=== PATIENT | female | born 1995 | race Caucasian/White ===

== ENCOUNTER 2018-03-09 13:09 | Observation (INO) | payer MEDICAID, OTHER ==
[~2018-03-09] VITALS: Ht 154.9 cm; Wt 86.4 kg
[~2018-03-09 13:09] MED LIST: AMOX500C2 PO; CLAR-19 PO; HYDR-3454 PO; HYDR-3729 PO; HYOS0.1283 SL; OMEP20CA12 PO; ONDA-42 SL; ONDA4TAB8 PO; PANT40TA2 PO; PRCD5U; PRENATAL VITAMINS; TRAM-42 PO; TRM50T PO
--- OUTSIDE RECORDS SUMMARY | 2018-03-09 13:16 | XMS REPORT ---
Author Author THELMA BUTT [facility] Address [address] [place] [address] Care Team Providers Care Front Maker Lockstitch Name Role Phone THELMA BUTT Unavailable PROBLEMS Type Condition ICD9-CM Code LPH84-FP Code Onset Dates Condition Status SNOMED Code Problem Seasonal allergic rhinitis, unspecified allergic rhinitis trigger J30.2 Active 813969473 ALLERGIES No Known Allergies ENCOUNTERS Encounter Location Date Diagnosis [address] [id number] Jan, [address] [id number] Jan, Persistent cough R05 [address] [id number] Jan, [address] [id number] Jan, Pneumonitis J18.[address] [id number] Jan, Pneumonitis J18.9 [place] [id number] [place] [address] [id number] Nov, Encounter for Depo-Provera contraception Z30.42 and Acute cystitis with hematuria N30.[address] [id number] August, Encounter for Depo-Provera contraception Z30.42 [place] [id number] [place] [address] [id number] May, Encounter for Depo-Provera contraception Z30.42 [place] [id number] [place] [address] [id number] Mar, Dysuria R30.0 ; Trichomonas infection A59.9 ; Vaginal discharge N89.8 ; Other microscopic hematuria R31.29 ; Urinary tract infection, site not specified N39.0 and Hematuria, unspecified R31.[address] [place] [address] [id number] 08 Mar, 2017 Well woman exam (no gynecological exam) Z00.00 ; control counseling Z30.09 ; Encounter for initial prescription of injectable contraceptive Z30.013 and Encounter for Depo-Provera contraception Z30.[address] [place] [address] [id number] 16 Sep, 2016 [place] [id number] [place] [address] [id number] Mar, Common cold J00 ; Sore throat J02.9 ; Cough R05 and Post-nasal drainage R09.82 [place] [id number] [place] [address] [id number] Mar, Acute pharyngitis due to other specified organisms J02.8 and Sinus congestion R09.81 [address] [id number] Mar, Seasonal allergic rhinitis, unspecified allergic rhinitis trigger J30.2 ; Post-nasal drip R09.82 and Sore throat J02.9 [facility] [id number] [place] [address]20- 4276 Jul, [facility] [id number] [place] [address] 657060- 7686 Jul, [facility] [id number] [place] [address] 02784- 6606 August, [facility] [address] [place] [address] [id number] Jul, [facility] [address] [address]- [address] Jul, [place] [id number] [place] [address] [id number] Jul, [facility] [id number] [place] [address] 45610- 1829 Jul, [address] [id number] [phone] Jun, [facility] [address] [address] Jun, [facility] [address] [address] Dec, [facility] [address] [id number] [place] [id number] Dec, [facility] [address] [id number] [place] [phone] Jun, [facility] [address] [id number] [place] [phone] Jun, [facility] [address] [id number] [place] [phone] May, [facility] [address] [id number] [place] [id number] Mar, [facility] [address] [address] 116[address] Mar, [facility] [address] [address] Dec, [facility] [id number] [id number] Jul, [facility] [address] [id number] [phone] Jul, [facility] [address] [place] [address] 90213- 3205 Mar, [facility] [address] [address] 5[address] Mar, [facility] [id number] [place] [address] 94193- 4863 Mar, [facility] [address] [id number] [phone] Mar, IMMUNIZATIONS No Known Immunizations SOCIAL HISTORY Never Assessed REASON FOR VISIT shortness of breath f/u, was seen in ER Monday and Monday [facility] RN PLAN OF CARE Activity Details Follow Up 1 Week Reason:cough VITAL SIGNS Height 63 in 2018-02-20 Weight 193.4 lbs 2018-02-20 Temperature 98.7 degrees Fahrenheit 2018-02-20 Heart Rate 88 bpm 2018-02-20 Respiratory Rate 18 2018-02-20 Oximetry 97 % 2018-02-20 BMI 34.26 kg/m2 2018-02-20 Blood pressure systolic 130 mmHg 2018-02-20 Blood pressure diastolic 84 mmHg 2018-02-20 MEDICATIONS Medication Instructions Dosage Frequency Start Date End Date Duration Status Azithromycin 250 MG as directed Active Albuterol Sulfate HFA 108 (90 Base) mcg/act Inhalation 4 times a day 2 puffs as needed 6h Jan, Active ZyrTEC 10 mg Orally Once a day 1 tablet 24h Jan, Active Benadryl 25 MG Orally at bedtime 1 capsule as needed Jan, Active RESULTS No Results PROCEDURES No Known procedures INSTRUCTIONS MEDICATIONS ADMINISTERED No Known Medications MEDICAL (GENERAL) HISTORY Type Description Date Surgical History appendectomy Surgical History cholecystectomy Surgical History dental Hospitalization History surgeries/child Hospitalization History URI 02/16/18 Hospitalization History Syncope 02/17/18
--- OUTSIDE RECORDS SUMMARY | 2018-03-09 13:16 | XMS REPORT ---
Author Author THELMA BUTT [facility] Address [address] [place] [address] Care Team Providers Care Extrusion Engineer Name Role Phone BUTTTHELMA VALE Unavailable PROBLEMS Type Condition ICD9-CM Code TLQ63-AY Code Onset Dates Condition Status SNOMED Code Problem Seasonal allergic rhinitis, unspecified allergic rhinitis trigger J30.2 Active [id number] ALLERGIES No Information ENCOUNTERS Encounter Location Date Diagnosis [facility] [id number] [place] [address] [phone]- [phone] Mar, Persistent cough R05 [address] [id number] Jan, [facility] [address] [id number] Jan, Persistent cough R05 [facility] [address] [id number] Jan, [address] [id number] Jan, Pneumonitis J18.9 [address] [place] [id number] [place] [address] [id number] Jan, Pneumonitis J18.9 [address] [place] [id number] [place] [address] [id number] Nov, Encounter for Depo-Provera contraception Z30.42 and Acute cystitis with hematuria N30.[address] [id number] August, Encounter for Depo-Provera contraception Z30.[address] [id number] May, Encounter for Depo-Provera contraception Z30.[address] [id number] Mar, Dysuria R30.0 ; Trichomonas infection A59.9 ; Vaginal discharge N89.8 ; Other microscopic hematuria R31.29 ; Urinary tract infection, site not specified N39.0 and Hematuria, unspecified R31.9 [address] [id number] Mar, Well woman exam (no gynecological exam) Z00.00 ; control counseling Z30.09 ; Encounter for initial prescription of injectable contraceptive Z30.013 and Encounter for Depo-Provera contraception Z30.[id number] [place] [address] [id number] 16 Sep, 2016 [id number] [place] [address] [id number] Mar, Common cold J00 ; Sore throat J02.9 ; Cough R05 and Post-nasal drainage R09.82 [address] [place] [id number] [place] [address] [id number] Mar, Acute pharyngitis due to other specified organisms J02.8 and Sinus congestion R09.[address] [id number] [id number] Mar, Seasonal allergic rhinitis, unspecified allergic rhinitis trigger J30.2 ; Post-nasal drip R09.82 and Sore throat J02.9 [facility] [address] [place] [address] [phone] Jul, [facility] [id number] [place] [address] 62954- 5315 Jul, [facility] [id number] [place] [address] 29362- 8834 August, [address] [place] [address] [id number] Jul, [facility] [id number] [place] [address] 57927- 0340 Jul, [address] [place] [address] [id number] Jul, [facility] [address] [facility] [id number] [address] Jul, [facility] [address] [id number] [place] [phone] Jun, [facility] [address] [facility] [id number] [place] [address] Jun, [facility] [address] [facility] [id number] [place] [address] 7[address] Dec, [facility] [address] [id number] [place] [phone] Dec, [facility] [address] [id number] [place] [phone] Jun, [facility] [address] [id number] [place] [phone] Jun, [facility] [address] [id number] [place] [phone] May, [facility] [address] [id number] [place] [phone] Mar, [facility] [address] [address]- 9[address] Mar, [facility] [address] [address]- 6[address] Dec, [facility] [address] [id number] [phone] Jul, [facility] [address] [facility] [id number] [place] [id number] Jul, [facility] [address] [facility] [id number] [place] [address]- 5783 Mar, [facility] [id number] [place] [address]- 4465 Mar, [facility] [address] [facility] [id number] [place] [address]- 7791 Mar, [facility] [address] [address] Mar, IMMUNIZATIONS No Known Immunizations SOCIAL HISTORY Never Assessed REASON FOR VISIT Medication refill request PLAN OF CARE VITAL SIGNS MEDICATIONS Medication Instructions Dosage Frequency Start Date End Date Duration Status Albuterol Sulfate HFA 108 (90 Base) mcg/act Inhalation 4 times a day 2 puffs as needed 6h Jan, Active RESULTS No Results PROCEDURES No Known procedures INSTRUCTIONS MEDICATIONS ADMINISTERED No Known Medications MEDICAL (GENERAL) HISTORY Type Description Date Surgical History appendectomy Surgical History cholecystectomy Surgical History dental Hospitalization History surgeries/child Hospitalization History URI 02/16/18 Hospitalization History Syncope 02/17/18
--- OUTSIDE RECORDS SUMMARY | 2018-03-09 13:17 | XMS REPORT ---
Author Author ERIN BALDWIN Organization [facility] Address [address] [place] [address] Care Team Providers Care Quality Control Technician Name Role Phone ERIN BALDWIN Unavailable PROBLEMS Type Condition ICD9-CM Code CTB04-HM Code Onset Dates Condition Status SNOMED Code Problem Seasonal allergic rhinitis, unspecified allergic rhinitis trigger J30.2 Active 822027486 Problem Urinary tract infection, site not specified 599.0 Active 86610930 Problem Dyspepsia and other specified disorders of function of stomach 536.8 Active 705396369 Problem Intestinal infection due to other organism, NEC 008.8 Active 29482581 Problem Headache 784.0 Active 63060329 Problem Acute upper respiratory infections of unspecified site 465.9 Active 86666474 ALLERGIES Substance Reaction Event Type Date Status N.K.D.A. Unknown Non Drug Allergy Mar, Unknown SOCIAL HISTORY No smoking Hx information available PLAN OF CARE Activity Details Follow Up prn Reason: VITAL SIGNS Height 63 in 2016-04-28 Weight 202.6 lbs 2016-04-28 Temperature 98.2 degrees Fahrenheit 2016-04-28 Heart Rate 76 bpm 2016-04-28 Respiratory Rate 16 2016-04-28 BMI 35.89 kg/m2 2016-04-28 Blood pressure systolic 104 mmHg 2016-04-28 Blood pressure diastolic 70 mmHg 2016-04-28 MEDICATIONS Medication Instructions Dosage Frequency Start Date End Date Duration Status Fluticasone Propionate 50 MCG/ACT Nasally twice a day 1 spray in each nostril 12h 23 Mar, 2016 Active RESULTS Name Result Date Reference Range STREP A (IN HOUSE) 2016-04-28 STREP A negative Control + Lot # [id number] Exp date 10/13/17 PROCEDURES Procedure Date Ordered Related Diagnosis Body Site Office Visit, Est Pt., Level 3 Apr 28, 2016 STREP A ASSAY W/OPTIC Apr 28, 2016 IMMUNIZATIONS No Known Immunizations
--- OUTSIDE RECORDS SUMMARY | 2018-03-09 13:17 | XMS REPORT ---
Author Author THELMA BUTT [facility] Address [address] [place] [address] Care Team Providers Care Cheese Cooker Name Role Phone THELMA BUTT Unavailable PROBLEMS Type Condition ICD9-CM Code AWJ51-FU Code Onset Dates Condition Status SNOMED Code Problem Seasonal allergic rhinitis, unspecified allergic rhinitis trigger J30.2 Active 821157523 Problem Intestinal infection due to other organism, NEC 008.8 Active 07752704 Problem Urinary tract infection, site not specified 599.0 Active 71091717 Problem Headache 784.0 Active 39218835 Problem Acute upper respiratory infections of unspecified site 465.9 Active 82052408 Problem Dyspepsia and other specified disorders of function of stomach 536.8 Active 425700843 ALLERGIES No Information ENCOUNTERS Encounter Location Date Diagnosis [place] [id number] [place] [address] [id number] Nov, Encounter for Depo-Provera contraception Z30.42 and Acute cystitis with hematuria N30.01 [address] [address] [place] [address] [id number] August, Encounter for Depo-Provera contraception Z30.42 [address] [place] [address] [id number] May, Encounter for Depo-Provera contraception Z30.[address] [id number] Mar, Dysuria R30.0 ; Trichomonas infection A59.9 ; Vaginal discharge N89.8 ; Other microscopic hematuria R31.29 ; Urinary tract infection, site not specified N39.0 and Hematuria, unspecified R31.9 [address] [place] [address] [id number] Mar, Well woman exam (no gynecological exam) Z00.00 ; control counseling Z30.09 ; Encounter for initial prescription of injectable contraceptive Z30.013 and Encounter for Depo-Provera contraception Z30.42 [address] [place] [address] [id number] Sep, [address] [place] [address] [id number] Mar, Common cold J00 ; Sore throat J02.9 ; Cough R05 and Post-nasal drainage R09.82 [address] [place] [address] [id number] Mar, Acute pharyngitis due to other specified organisms J02.8 and Sinus congestion R09.81 [id number] [place] [address] [id number] Mar, Seasonal allergic rhinitis, unspecified allergic rhinitis trigger J30.2 ; Post-nasal drip R09.82 and Sore throat J02.9 [facility] [address] [address]- [address] Jul, [facility] [id number] [place] [address] 370967- 2333 Jul, [facility] [address] [id number] 4275 August, [address] [place] [address] [place] [address] [id number] Jul, [facility] [id number] [place] [address] 92985- 5124 Jul, [address] [place] [place] [address] [id number] Jul, [facility] [id number] [place] [address] 556837- 6959 Jul, [address] [place] [place] [address] [id number] Jun, [facility] [address] [id number]- 6493 Jun, [facility] [address] [place] [address]- 2546 Dec, [facility] [address] [id number] [phone] Dec, [facility] [id number] [id number] Jun, [facility] [id number] [place] [address] [id number] Jun, [facility] [id number] [place] [address] [id number] May, [facility] [id number] [place] [address] [id number] Mar, [facility] [address] 8[address]- 2546 Mar, [facility] [id number] [place] [address] 21368- 2546 Dec, [address] [place] [place] [address] [id number] Jul, [address] [place] [place] [address] [id number] Jul, [facility] [address] [address]- [address]266 Mar, [facility] [id number] [place] [address] 92007- 2546 Mar, [facility] [id number] [place] [address] 49624- 2546 Mar, [facility] [id number] [place] [address] 56949- 2546 Mar, IMMUNIZATIONS Vaccine Route Administration Date Status DEPO PROVERA (150 MG/ML) IM Intramuscular Dec 11, 2017 Administered SOCIAL HISTORY Never Assessed REASON FOR VISIT Depo Provera Menjivar RN PLAN OF CARE VITAL SIGNS MEDICATIONS Unknown Medications RESULTS Name Result Date Reference Range TEST, URINE (IN HOUSE) 2017-12-11 RESULTS negative Lot # [id number] Control positive Exp date 04/30/19 UA LONG DIP (IN HOUSE) 2017-12-11 Lot # [id number] Exp date 03/30/18 Clarity sl cloudy Color yellow Odor no GLU neg MELANIE neg KET neg SG 1.020 BLO trace pH 7.5 Protein neg URO 0.2 NIT neg JADON 1+ Lot # Exp date PROCEDURES Procedure Date Ordered Result Body Site URINE TEST Dec 11, 2017 DEPO PROVERA (150 MG/ML) Dec 11, 2017 URINALYSIS, AUTO, W/O SCOPE Dec 11, 2017 THER/PROPH/DIAG INJ, SC/IM Dec 11, 2017 INSTRUCTIONS MEDICATIONS ADMINISTERED No Known Medications MEDICAL (GENERAL) HISTORY Type Description Date Surgical History appendectomy Surgical History cholecystectomy Surgical History dental Hospitalization History surgeries/child
--- OUTSIDE RECORDS SUMMARY | 2018-03-09 13:17 | XMS REPORT ---
Author Author ERIN BALDWIN Organization [employer] Address Unknown Phone Unavailable Care Team Providers Care Healthcare Or Medical Name Role Phone ERIN BALDWIN CP Unavailable Allergies, Adverse Reactions, Alerts Substance Reaction Event Type N.K.D.A. Info Not Available Non Drug Allergy Problems Problem Type Condition Code Onset Dates Condition Status Assessment Post-nasal drip R09.82 Active Assessment Sore throat J02.9 Active Problem Urinary tract infection, site not specified 599.0 Active Problem Headache 784.0 Active Problem Seasonal allergic rhinitis, unspecified allergic rhinitis trigger J30.2 Active Problem Intestinal infection due to other organism, NEC 008.8 Active Assessment Seasonal allergic rhinitis, unspecified allergic rhinitis trigger J30.2 Active Problem Acute upper respiratory infections of unspecified site 465.9 Active Problem Dyspepsia and other specified disorders of function of stomach 536.8 Active Medications Medication Code System Code Instructions Start Date End Date Status Dosage PredniSONE [facility] [address]-48 20 mg Orally Once a day Mar 23, 2016 Mar 28, 2016 1 tablet Fluticasone Propionate [facility] [address]-55 50 MCG/ACT Nasally twice a day Mar 23, 2016 1 spray in each nostril Procedures Procedure Coding System Code Date Office Visit, Est Pt., Level 3 CPT-4 56901 Mar 23, 2016 Vital Signs Date/Time: Mar 23, 2016 Cardiac Monitoring Heart Rate 95 bpm Weight 201 lbs Height 63 in BMI 35.60 Index Oximetry 95 % Blood Pressure Diastolic 66 mmHg Blood Pressure Systolic 112 mmHg BMIPercentile 97.43 % Wt Percentile 97.5 % Results No Known Results Summary Purpose [employer] Submission
--- OUTSIDE RECORDS SUMMARY | 2018-03-09 13:17 | XMS REPORT ---
Author Author THELMA BUTT [facility] Address [address] [place] [address] Care Team Providers Care Chief Wheelage Clerk Name Role Phone THELMA BUTT Unavailable PROBLEMS Type Condition ICD9-CM Code [id number] Code Onset Dates Condition Status SNOMED Code Problem Seasonal allergic rhinitis, unspecified allergic rhinitis trigger J30.2 Active 368040197 ALLERGIES No Information ENCOUNTERS Encounter Location Date Diagnosis [address] [id number] Jan, [address] [id number] Jan, Pneumonitis J18.[address] [id number] Jan, Pneumonitis J18.[address] [id number] Nov, Encounter for Depo-Provera contraception Z30.42 and Acute cystitis with hematuria N30.01 [place] [id number] [place] [address] [id number] August, Encounter for Depo-Provera contraception Z30.[address] [id number] May, Encounter for Depo-Provera contraception Z30.[address] [place] [id number] [place] [address] [id number] Mar, Dysuria R30.0 ; Trichomonas infection A59.9 ; Vaginal discharge N89.8 ; Other microscopic hematuria R31.29 ; Urinary tract infection, site not specified N39.0 and Hematuria, unspecified R31.9 [address] [id number] [place] [address] [id number] Mar, Well woman exam (no gynecological exam) Z00.00 ; control counseling Z30.09 ; Encounter for initial prescription of injectable contraceptive Z30.013 and Encounter for Depo-Provera contraception Z30.[address] [place] [address] [id number] 16 Sep, 2016 [place] [id number] [place] [address] [id number] Mar, Common cold J00 ; Sore throat J02.9 ; Cough R05 and Post-nasal drainage R09.82 [address] [id number] [place] [address] [id number] 30 Mar, 2016 Acute pharyngitis due to other specified organisms J02.8 and Sinus congestion R09.81 [address] [id number] [place] [address] [id number] Mar, Seasonal allergic rhinitis, unspecified allergic rhinitis trigger J30.2 ; Post-nasal drip R09.82 and Sore throat J02.9 [facility] [id number] [place] [address] 49784- 8406 Jul, [facility] [address] [phone] Jul, [facility] [id number] [place] [address] 77574- 3876 August, [address] [place] [address] [id number] Jul, [facility] [id number] [place] [address] 49262- 9976 Jul, [address] [place] [address] [id number] Jul, [facility] [address] 19649- [phone] Jul, [place] [id number] [place] [address] [phone] Jun, [facility] [id number] [place] [address] 24523- 4616 Jun, [facility] [id number] [address] Dec, [facility] [id number] [phone] Dec, [facility] [id number] [phone] Jun, [facility] [id number][place] [phone] Jun, [facility] [id number][place] [phone] May, [facility] [id number][place] [phone] Mar, [facility] [id number] [place] [address] 16879- [phone] Mar, [facility] [id number] [place] [address] [phone]- [phone] Dec, [facility] [id number][place] [phone] Jul, [facility] [address]00565[address] [phone] Jul, [facility] [id number] [place] [address] 34302- 2113 Mar, [facility] [address] [address] 67[address] Mar, [facility] [address] [id number] [address] 475[address] Mar, [facility] [id number] [address] 8[address] Mar, IMMUNIZATIONS No Known Immunizations SOCIAL HISTORY Never Assessed REASON FOR VISIT bloodwork Anne HARDIN PLAN OF CARE VITAL SIGNS MEDICATIONS Medication Instructions Dosage Frequency Start Date End Date Duration Status Benzonatate 100 mg Orally Three times a day 1 capsule as needed 8h Jan, Active PredniSONE 10 MG Orally Once a day 4 tablet with food or milk x 4 d then 3 tab x 4 d then 2 tab x 4 d then 1 tab x 4 d 24h Jan, Active Albuterol Sulfate HFA 108 (90 Base) mcg/act Inhalation 4 times a day 2 puffs as needed 6h Jan, Active RESULTS Name Result Date Reference Range CBC 2018-01-30 WHITE BLOOD CELL COUNT 7.3 3.8-10.8 RED BLOOD CELL COUNT 4.53 3.80-5.10 HEMOGLOBIN 13.4 11.7-15.5 HEMATOCRIT 40.6 35.0-45.0 MCV 89.6 80.0-100.0 MCH 29.6 27.0-33.0 MCHC 33.0 32.0-36.0 RDW 12.5 11.0-15.0 PLATELET COUNT 377 140-400 MPV 10.0 7.5-12.5 ABSOLUTE NEUTROPHILS [phone] ABSOLUTE LYMPHOCYTES [phone] ABSOLUTE MONOCYTES 825 200-950 ABSOLUTE EOSINOPHILS 876 15-500 ABSOLUTE BASOPHILS 124 0-200 NEUTROPHILS 51.2 LYMPHOCYTES 23.8 MONOCYTES 11.3 EOSINOPHILS 12.0 BASOPHILS 1.7 PROCEDURES Procedure Date Ordered Result Body Site LAB [facility] Jan [facility], 2018 ANGEL, ROUTINE* Jan 30, 2018 INSTRUCTIONS MEDICATIONS ADMINISTERED No Known Medications MEDICAL (GENERAL) HISTORY Type Description Date Surgical History appendectomy Surgical History cholecystectomy Surgical History dental Hospitalization History surgeries/child
--- OUTSIDE RECORDS SUMMARY | 2018-03-09 13:17 | XMS REPORT ---
Author Author KORI LARA Organization [facility] Address [address] [place] [address] Care Team Providers Care Manufactured Buildings Supervisor Name Role Phone KORI LARA Unavailable PROBLEMS Type Condition ICD9-CM Code QDV22-BX Code Onset Dates Condition Status SNOMED Code Problem Seasonal allergic rhinitis, unspecified allergic rhinitis trigger J30.2 Active 680309582 Problem Intestinal infection due to other organism, NEC 008.8 Active 51606093 Problem Urinary tract infection, site not specified 599.0 Active 64447603 Problem Headache 784.0 Active 51342054 Problem Acute upper respiratory infections of unspecified site 465.9 Active 70710046 Problem Dyspepsia and other specified disorders of function of stomach 536.8 Active 561115448 ALLERGIES Substance Reaction Event Type Date Status N.K.D.A. Unknown Non Drug Allergy Mar, Unknown SOCIAL HISTORY No smoking Hx information available PLAN OF CARE Activity Details Follow Up 2 - 3 Days Reason:if s/s worsen VITAL SIGNS Height 63 in 2016-03-30 Weight 202.8 lbs 2016-03-30 Temperature 98.3 degrees Fahrenheit 2016-03-30 Heart Rate 92 bpm 2016-03-30 Respiratory Rate 18 2016-03-30 BMI 35.92 kg/m2 2016-03-30 Blood pressure systolic 110 mmHg 2016-03-30 Blood pressure diastolic 64 mmHg 2016-03-30 MEDICATIONS Medication Instructions Dosage Frequency Start Date End Date Duration Status Fluticasone Propionate 50 MCG/ACT Nasally twice a day 1 spray in each nostril 12h Mar, Active Amoxicillin 500 MG Orally every 12 hrs 1 capsule 12h Mar, Mar, 10 day(s) Active RESULTS No Results PROCEDURES Procedure Date Ordered Related Diagnosis Body Site Office Visit, Est Pt., Level 3 Mar 30, 2016 IMMUNIZATIONS No Known Immunizations
--- OUTSIDE RECORDS SUMMARY | 2018-03-09 13:17 | XMS REPORT ---
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 ERIN BALDWIN Unavailable PROBLEMS Type Condition ICD9-CM Code KAW32-BG Code Onset Dates Condition Status SNOMED Code Problem Seasonal allergic rhinitis, unspecified allergic rhinitis trigger J30.2 Active 943720267 Problem Intestinal infection due to other organism, NEC 008.8 Active 27679487 Problem Urinary tract infection, site not specified 599.0 Active 54851531 Problem Headache 784.0 Active 16539688 Problem Acute upper respiratory infections of unspecified site 465.9 Active 47215593 Problem Dyspepsia and other specified disorders of function of stomach 536.8 Active 859629782 ALLERGIES No Known Allergies ENCOUNTERS Encounter Location Date Diagnosis [address] [place] [address] [id number] August, Encounter for Depo-Provera contraception Z30.42 [place] [id number] [place] [address] [id number] May, Encounter for Depo-Provera contraception Z30.42 [address] [place] [address] [id number] Mar, Dysuria R30.0 ; Trichomonas infection A59.9 ; Vaginal discharge N89.8 ; Other microscopic hematuria R31.29 ; Urinary tract infection, site not specified N39.0 and Hematuria, unspecified R31.[address] [id number] Mar, Well woman exam (no gynecological exam) Z00.00 ; control counseling Z30.09 ; Encounter for initial prescription of injectable contraceptive Z30.013 and Encounter for Depo-Provera contraception Z30.42 [place] [id number] [place] [address] [id number] Sep, [facility] [id number] [id number] Mar, Common cold J00 ; Sore throat J02.9 ; Cough R05 and Post-nasal drainage R09.82 [facility] [id number] [id number] 30 Mar, 2016 Acute pharyngitis due to other specified organisms J02.8 and Sinus congestion R09.81 [address] [id number] Mar, Seasonal allergic rhinitis, unspecified allergic rhinitis trigger J30.2 ; Post-nasal drip R09.82 and Sore throat J02.9 [facility] [address] [place] [address] 63624- [phone] Jul, [facility] [address] 537427- 6769 Jul, [facility] [id number] [place] [address] 040744- 5750 August, [facility] [id number] [place] [address] [phone] Jul, [facility] [id number] [place] [address] 982157- 0317 Jul, [facility] [id number] [place] [address] [phone] Jul, [facility] [id number] [place] [address] 01146- [phone] Jul, [facility] [id number] [place] [address] [phone] Jun, [facility] [id number] [place] [address] 71040- 4606 Jun, [facility] [id number] [place] [address] 28460- [phone] Dec, [facility] [id number] [place] [address] [phone] Dec, [facility] [address] [id number] [phone] Jun, [facility] [id number], [place] [phone] Jun, [facility] [address] 14954559K13358419UCMANCHESTER[place] [phone] May, [facility] [address]00565100[place] [phone] Mar, [facility] [id number] [place] [address] 98175- 2546 Mar, [facility] [id number] [place] [address] 05238- [phone] Dec, [facility] [id number] [place] [address] [phone] Jul, [facility] [address] [phone] Jul, [facility] [id number] [place] [address] 55865 2546 Mar, [facility] [id number] [place] [address] 54109 2546 Mar, [facility] [id number] [place] [address] 82161 2546 Mar, [facility] [id number] [place] [address] 70969- [phone] Mar, IMMUNIZATIONS Vaccine Route Administration Date Status ROCEPHIN 250 MG (IM) IM Intramuscular Apr 26, 2017 Administered SOCIAL HISTORY Never Assessed REASON FOR VISIT states she is having urinary frequency with some pain, vaginal itching. She has recently found out that her boyfriend has been cheating on her and is now concerned about STD's. butch Lynne PLAN OF CARE Activity Details Follow Up prn Reason: VITAL SIGNS Height 63 in 2017-04-26 Weight 186.2 lbs 2017-04-26 Temperature 97.5 degrees Fahrenheit 2017-04-26 Heart Rate 100 bpm 2017-04-26 Respiratory Rate 16 2017-04-26 BMI 32.98 kg/m2 2017-04-26 Blood pressure systolic 116 mmHg 2017-04-26 Blood pressure diastolic 72 mmHg 2017-04-26 MEDICATIONS Medication Instructions Dosage Frequency Start Date End Date Duration Status Pyridium 200 mg Orally Three times a day 1 tablet after meals 8h Mar, May, 05 days Active Metronidazole 500 mg Orally every 8 hrs 1 tablet 8h Mar, May, 10 day(s) Active RESULTS No Results PROCEDURES Procedure Date Ordered Result Body Site [facility] Apr [facility], 2017 No Charge Apr 26, 2017 URINALYSIS, AUTO, W/O SCOPE Apr 26, 2017 THER/PROPH/DIAG INJ, SC/IM Apr 26, 2017 ROCEPHIN 250 MG (IM) Apr 26, 2017 INSTRUCTIONS MEDICATIONS ADMINISTERED No Known Medications MEDICAL (GENERAL) HISTORY Type Description Date Surgical History appendectomy Surgical History cholecystectomy Surgical History dental Hospitalization History surgeries/child
--- OUTSIDE RECORDS SUMMARY | 2018-03-09 13:17 | XMS REPORT ---
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 Phone KORI LARA Unavailable PROBLEMS Type Condition ICD9-CM Code IDH91-RH Code Onset Dates Condition Status SNOMED Code Problem Seasonal allergic rhinitis, unspecified allergic rhinitis trigger J30.2 Active 793181059 Problem Intestinal infection due to other organism, NEC 008.8 Active 29945306 Problem Urinary tract infection, site not specified 599.0 Active 46536270 Problem Headache 784.0 Active 66198188 Problem Acute upper respiratory infections of unspecified site 465.9 Active 97830812 Problem Dyspepsia and other specified disorders of function of stomach 536.8 Active 080050756 ALLERGIES No Information ENCOUNTERS Encounter Location Date Diagnosis [address] [place] [address] [id number] August, Encounter for Depo-Provera contraception Z30.[address] [place] [id number] [place] [address] [id number] May, Encounter for Depo-Provera contraception Z30.42 [place] [id number] [place] [address] [id number] Mar, Dysuria R30.0 ; Trichomonas infection A59.9 ; Vaginal discharge N89.8 ; Other microscopic hematuria R31.29 ; Urinary tract infection, site not specified N39.0 and Hematuria, unspecified R31.[address] [id number] Mar, Well woman exam (no gynecological exam) Z00.00 ; control counseling Z30.09 ; Encounter for initial prescription of injectable contraceptive Z30.013 and Encounter for Depo-Provera contraception Z30.42 [place] [id number] [id number] Sep, [facility] [id number] [place] [id number] Mar, Common cold J00 ; Sore throat J02.9 ; Cough R05 and Post-nasal drainage R09.82 [facility] [id number] [place] [id number] 30 Mar, 2016 Acute pharyngitis due to other specified organisms J02.8 and Sinus congestion R09.[address] [id number] [id number] Mar, Seasonal allergic rhinitis, unspecified allergic rhinitis trigger J30.2 ; Post-nasal drip R09.82 and Sore throat J02.9 [facility] [address] [place] [address] 03861- [phone] Jul, [facility] [id number] [place] [address] 56361- [phone] Jul, [facility] [id number] [place] [address] [phone]- [phone] August, [facility] [id number] [place] [address] [phone] Jul, [facility] [id number] [place] [address] [phone] Jul, [facility] [id number] [place] [phone] Jul, [facility] [id number] [place] [address] [phone]- [phone] Jul, [facility] [id number] [place] [address] [phone] Jun, [facility] [id number] [place] [address] 36164- [phone] Jun, [facility] [address] [place] [address] [phone]- [phone] Dec, [facility] [id number] [place] [address] [phone] Dec, [facility] [address] [id number] [phone] Jun, [facility] [id number] [place] [phone] Jun, [facility] [id number] [place] [phone] May, [facility] [address] [place] [address] [phone] Mar, [facility] [id number] [place] [address] [phone] Mar, [facility] [id number] [place] [address] [phone] Dec, [facility] [address] [place] [address] [phone] Jul, [address] [place] [address] [id number] Jul, [facility] [id number] [place] [address] [phone]- [phone] Mar, [facility] [id number] [place] [address] [phone]- [phone] Mar, [facility] [id number] [place] [address] [phone] Mar, [facility] [id number] [place] [address] [phone] Mar, IMMUNIZATIONS Vaccine Route Administration Date Status DEPO PROVERA (150 MG/ML) IM Intramuscular September 13, 2017 Administered SOCIAL HISTORY Never Assessed REASON FOR VISIT Chriso-provera Otto ALCANTARA PLAN OF CARE VITAL SIGNS MEDICATIONS Unknown Medications RESULTS Name Result Date Reference Range TEST, URINE (IN HOUSE) 2017-09-13 RESULTS negative Lot # [id number] Control positive Exp date 12/29/18 PROCEDURES Procedure Date Ordered Result Body Site URINE TEST September 13, 2017 DEPO PROVERA (150 MG/ML) September 13, 2017 THER/PROPH/DIAG INJ, SC/IM September 13, 2017 INSTRUCTIONS MEDICATIONS ADMINISTERED No Known Medications MEDICAL (GENERAL) HISTORY Type Description Date Surgical History appendectomy Surgical History cholecystectomy Surgical History dental Hospitalization History surgeries/child
--- OUTSIDE RECORDS SUMMARY | 2018-03-09 13:17 | XMS REPORT ---
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 Phone THELMA BUTT Unavailable PROBLEMS Type Condition ICD9-CM Code LPS43-MV Code Onset Dates Condition Status SNOMED Code Problem Seasonal allergic rhinitis, unspecified allergic rhinitis trigger J30.2 Active [id number] ALLERGIES No Information ENCOUNTERS Encounter Location Date Diagnosis [address] [id number] Jan, [address] [id number] Jan, Persistent cough R05 [address] [id number] Jan, [address] [id number] Jan, Pneumonitis J18.[address] [id number] Jan, Pneumonitis J18.[address] [id number] Nov, Encounter for Depo-Provera contraception Z30.42 and Acute cystitis with hematuria N30.[address] [id number] August, Encounter for Depo-Provera contraception Z30.42 [place] [id number] [place] [id number] May, Encounter for Depo-Provera contraception Z30.[address] [id number] Mar, Dysuria R30.0 ; Trichomonas infection A59.9 ; Vaginal discharge N89.8 ; Other microscopic hematuria R31.29 ; Urinary tract infection, site not specified N39.0 and Hematuria, unspecified R31.9 [facility] [address] [place] [address] [id number] 08 Mar, 2017 Well woman exam (no gynecological exam) Z00.00 ; control counseling Z30.09 ; Encounter for initial prescription of injectable contraceptive Z30.013 and Encounter for Depo-Provera contraception Z30.42 [address] [place] [address] [id number] 16 Sep, 2016 [place] [id number] [place] [address] [id number] Mar, Common cold J00 ; Sore throat J02.9 ; Cough R05 and Post-nasal drainage R09.82 [place] [id number] [place] [address] [id number] Mar, Acute pharyngitis due to other specified organisms J02.8 and Sinus congestion R09.81 [id number] [phone] Mar, Seasonal allergic rhinitis, unspecified allergic rhinitis trigger J30.2 ; Post-nasal drip R09.82 and Sore throat J02.9 [facility] [id number] [place] [phone] Jul, [facility] [id number] [place] [address] [phone]- [phone] Jul, [facility] [id number] [place] [phone] August, [facility] [id number] [place] [address] [phone] Jul, [facility] ([facility] [address] [phone] Jul, [facility] [address] [place] [address] [id number] Jul, [facility] ([facility] [id number] [place] [phone]- [phone] Jul, [place] [id number] [phone] Jun, [facility] ([facility] [id number] [address] Jun, [facility] ([facility] [id number] [address] Dec, [facility] [address] [id number] [place] [phone] Dec, [facility] [address] [id number] [place] [phone] Jun, [facility] [address] [id number] [place] [phone] Jun, [facility] [address] [id number] [place] [phone] May, [facility] [id number] [place] [phone] Mar, [facility] ([facility] [id number] [place] [phone]- [phone] Mar, [facility] ([facility] [id number] [address] Dec, [facility] [id number] [place] [id number] Jul, [facility] [id number] [phone] Jul, [facility] ([facility] [address] [place] [address] [phone]- [phone] Mar, [facility] ([facility] [id number] [address] Mar, [facility] [id number] [place] [address] [phone]- [phone] Mar, [facility] [id number] [place] [phone]- [phone] Mar, IMMUNIZATIONS No Known Immunizations SOCIAL HISTORY Never Assessed REASON FOR VISIT PLAN OF CARE VITAL SIGNS MEDICATIONS Unknown Medications RESULTS No Results PROCEDURES No Known procedures INSTRUCTIONS MEDICATIONS ADMINISTERED No Known Medications MEDICAL (GENERAL) HISTORY Type Description Date Surgical History appendectomy Surgical History cholecystectomy Surgical History dental Hospitalization History surgeries/child Hospitalization History URI 02/16/18 Hospitalization History Syncope 02/17/18
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
[2018-03-09] MEDS ORDERED: RT-ALBUTEROL/IPRATROPIUM 3 ML (DUONEB) VIAL INH ONE (14:15)
--- NOTE | 2018-03-09 14:18 | ED Respiratory ---
General Chief Complaint: Respiratory Problems Stated Complaint: COUGH;TROUBLE BREATHING Nursing Triage Note: pt states she has had progressively worsening coughing with shortness of breath and intermittent bright red blood in her sputum at night. states she cannot lay flat to sleep. Source: patient Exam Limitations: no limitations History of Present Illness Date Seen by Provider: Mar 09, 2018 Time Seen by Provider: 14:14 Initial Comments The patient is a 22-year-old white female who presents with complaints of a cough and shortness of breath for the past month. This has been progressively getting worse. She is not clear as to whether she has had a fever or not. She was not asthmatic as a child. She smokes but has not done so in 2 weeks because of the cough and shortness of breath. She reports harsh paroxyms of coughing Timing/Duration: other Allergies and Home Medications Allergies Coded Allergies: No Known Drug Allergies (Unverified , 02/17/09) Home Medications Hydrocodone/Acetaminophen 1 Each Tablet, 1-2 TAB PO Q4-6HRS Prescribed by: CASS MONCADA on 10/28/15 0822 Hydrocodone/Acetaminophen 1 Each Tablet, 1 EACH PO Q4H PRN for ABDOMINAL PAIN Prescribed by: SHAHEEN PATEL on 10/28/15 0956 Review of Systems Review of Systems Constitutional: see HPI EENTM: no symptoms reported Respiratory: cough, dyspnea on exertion, phlegm, short of breath Cardiovascular: no symptoms reported Gastrointestinal: no symptoms reported Genitourinary: no symptoms reported Musculoskeletal: no symptoms reported Skin: no symptoms reported Psychiatric/Neurological: No Symptoms Reported Hematologic/Lymphatic: No Symptoms Reported Immunological/Allergic: no symptoms reported Past Zjvzwjc-Whgebe-Ufaidf Hx Patient Social History Alcohol Use: Denies Use Recreational Drug Use: No Smoking Status: Current Someday Smoker Type Used: Cigarettes Recent Foreign Travel: No Contact w/Someone Who Travel: No Recent Infectious Disease Expo: No Recent Hopitalizations: No Immunizations Up To Date Tetanus Booster (TDap): Less than 5yrs PED Vaccines UTD: Yes Date of Influenza Vaccine: Mar 10, 2014 Seasonal Allergies Seasonal Allergies: No Past Medical History Surgeries: Yes (oral surgery-teeth, bmt) Appendectomy, Ear Surgery, Gallbladder Respiratory: No Cardiac: No Neurological: No : No Last Menstrual Period: Jan 04, 2018 Reproductive Disorders: No Female Reproductive Disorders: Denies Sexually Transmitted Disease: No HIV/AIDS: No Gastrointestinal: No Gall Bladder Disease Musculoskeletal: No Endocrine: No Loss of Vision: Denies Hearing Impairment: Denies Cancer: No Psychosocial: No Integumentary: No Blood Disorders: No Family Medical History Alcoholism 19 MOTHER, , Age:30's - 40, Onset:Unknown (All of his life) Hypertension 19 MOTHER, Onset:30's - 40 No Family History of: AIDS Abdominal aortic aneurysm [place]'s disease Alzheimer's disease Aphasia Arthritis Asthma Cancer of mouth Cardiovascular disease Cataracts Colon cancer Completed stroke Congenital disease Congenital heart disease Coronary thrombosis Cystic fibrosis Deafness or hearing loss Dementia Diabetes mellitus Drug abuse Dysphasia Fibrocystic disease of breast Gastroenteritis Glaucoma Headache disorder Hypercholesterolemia Infertility Kidney disease Myocardial infarction Neoplasm Not obtainable due to adoption Osteoporosis Parkinson's disease Prostate cancer Psychosocial problem Respiratory disorder Seizure disorder Severe allergy Thyroid disease Tuberculosis Visual disorder Physical Exam Vital Signs - First Documented 03/09/18 13:13 Temp 97.0 Pulse 103 Resp 26 B/P (MAP) 123/89 (100) Pulse Ox 98 O2 Delivery Nasal Cannula O2 Flow Rate 3.00 Capillary Refill : Less Than 3 Seconds Height: 5'1.00" Weight: 192lbs. 0.0oz. [id number]; 33.28 BMI Method:Stated General Appearance: moderate distress Eyes: Bilateral Eye Normal Inspection HEENT: normal ENT inspection Neck: full range of motion Respiratory: rhonchi, other (request for deep breath triggered a paroxysm of coughing) Cardiovascular: normal peripheral pulses, regular rate, rhythm, no edema, no gallop, no JVD, no murmur Gastrointestinal: normal bowel sounds, non tender, soft, no organomegaly, no pulsatile mass Extremities: normal range of motion, non-tender, normal inspection, no pedal edema, no calf tenderness, normal capillary refill, pelvis stable Neurologic/Psychiatric: assistant at surgery II-XII nml as tested, no motor/sensory deficits, alert, normal mood/affect, oriented x 3 Skin: normal color, warm/dry, cyanosis, cool, diaphoresis, damp Lymphatic: no adenopathy Progress/Results/Core Measures Suspected Sepsis Recent Fever Within 48 Hours: No Infection Criteria Present: Suspected New Infection New/Unexplained Altered Menta: No Sepsis Screen: Possible Sepsis Risk SIRS Temperature:97.0 Pulse: 103 Respiratory Rate: 26 Laboratory Tests 03/09/18 13:29: White Blood Count 9.2 Blood Pressure 123 /89 Mean: 100 Laboratory Tests 03/09/18 13:29: Creatinine 0.69, Platelet Count 406H, Total Bilirubin 0.4 Results/Orders Lab Results Laboratory Tests Test 03/09/18 13:29 Range/Units White Blood Count 9.2 4.3-11.0 10^3/uL Red Blood Count 4.60 4.35-5.85 10^6/uL Hemoglobin 13.1 11.5-16.0 G/DL Hematocrit 41 35-52 % Mean Corpuscular Volume 88 80-99 FL Mean Corpuscular Hemoglobin 29 25-34 PG Mean Corpuscular Hemoglobin Concent 32 32-36 G/DL Red Cell Distribution Width 13.3 10.0-14.5 % Platelet Count 406 H 130-400 10^3/uL Mean Platelet Volume 9.6 7.4-10.4 FL Neutrophils (%) (Auto) 56 42-75 % Lymphocytes (%) (Auto) 28 12-44 % Monocytes (%) (Auto) 9 0-12 % Eosinophils (%) (Auto) 6 0-10 % Basophils (%) (Auto) 1 0-10 % Neutrophils # (Auto) 5.1 1.8-7.8 X 10^3 Lymphocytes # (Auto) 2.6 1.0-4.0 X 10^3 Monocytes # (Auto) 0.8 0.0-1.0 X 10^3 Eosinophils # (Auto) 0.6 H 0.0-0.3 10^3/uL Basophils # (Auto) 0.1 0.0-0.1 10^3/uL Sodium Level 140 135-145 MMOL/L Potassium Level 3.7 3.6-5.0 MMOL/L Chloride Level 106 98-107 MMOL/L Carbon Dioxide Level 24 21-32 MMOL/L Anion Gap 10 5-14 MMOL/L Blood Urea Nitrogen 8 7-18 MG/DL Creatinine 0.69 0.60-1.30 MG/DL Estimat Glomerular Filtration Rate > 60 BUN/Creatinine Ratio 12 Glucose Level 85 70-105 MG/DL Calcium Level 9.6 8.5-10.1 MG/DL Corrected Calcium 9.4 8.5-10.1 MG/DL Total Bilirubin 0.4 0.1-1.0 MG/DL Aspartate Amino Transf (AST/SGOT) 40 H 5-34 U/L Alanine Aminotransferase (ALT/SGPT) 49 0-55 U/L Alkaline Phosphatase 83 40-136 U/L Total Protein 7.0 6.4-8.2 GM/DL Albumin 4.2 3.2-4.5 GM/DL Micro Results Microbiology 03/09/18 Influenza Types A,B Antigen (VANNA) - Final, Complete My Orders Orders - MARKO BUENO MD Cbc With Automated Diff (03/09/18 14:03) Comprehensive Metabolic Panel (03/09/18 14:03) Chest 1 View, Ap/Pa Only (03/09/18 14:03) Albuterol/Ipra Inhalation Soln (Duoneb I (03/09/18 14:15) Rt Request For Service (03/09/18 14:10) Svn Small Volume Nebulizer (03/09/18 14:10) Influenza A And B Antigens (03/09/18 14:18) Medications Given in ED Current Medications Medications Dose Ordered Sig/Ankush Route Start Time Stop Time Status Last Admin Dose Admin Albuterol/ Ipratropium 3 ml ONCE ONCE INH 03/09/18 14:15 03/09/18 14:16 DC 03/09/18 14:18 3 ML Vital Signs/I&O 03/09/18 03/09/18 13:13 14:20 Temp 97.0 Pulse 103 Resp 26 B/P (MAP) 123/89 (100) Pulse Ox 98 98 O2 Delivery Nasal Cannula Nasal Cannula O2 Flow Rate 3.00 3.00 Capillary Refill : Less Than 3 Seconds Blood Pressure Mean: 100 Departure Communication (Admissions) Chest x-ray shows bibasilar infiltrates. White count is within normal limits. Given the length of complaints and the incessant cough. Discussed this with Dr. Calvo. The patient will be admitted observation. Impression Primary Impression: pneumonitis/intractable cough Disposition: ADMITTED INPATIENT Condition: Stable/Unchanged Departure-Patient Inst. Referrals: [facility] (PCP) Primary Care Physician MARKO BUENO MD Mar 09, 2018 14:18
--- NOTE | 2018-03-09 14:44 | Diagnostic Imaging Report ---
Indication: Cough and difficulty breathing. Time of exam 2:33 PM Correlation is made with prior exam from 09/09/2015. There appears to be some mild patchy parenchymal density in the left base suggestive of pneumonia. The right lung is clear. The pulmonary vascularity is normal. No effusion or pneumothorax is seen. Impression: Patchy left basilar pneumonia. Dictated by: Dictated on workstation # [id number]
[2018-03-09 15:40] LABS: BASOPHILS # (AUTO) 0.1 10^3/uL (0.0-0.1); BASOPHILS % (AUTO) 1 % (0-10); EOSINOPHILS # (AUTO) 0.6 10^3/uL (0.0-0.3); EOSINOPHILS % (AUTO) 6 % (0-10); HEMATOCRIT 41 % (35-52); HEMOGLOBIN 13.1 G/DL (11.5-16.0); LYMPHOCYTES # (AUTO) 2.6 X 10^3 (1.0-4.0); LYMPHOCYTES % (AUTO) 28 % (12-44); MEAN CORPUSCULAR HEMOGLOBIN 29 PG (25-34); MEAN CORPUSCULAR HGB CONC 32 G/DL (32-36); MEAN CORPUSCULAR VOLUME 88 FL (80-99); MEAN PLATELET VOLUME 9.6 FL (7.4-10.4); MONOCYTES # (AUTO) 0.8 X 10^3 (0.0-1.0); MONOCYTES % (AUTO) 9 % (0-12); NEUTROPHILS # (AUTO) 5.1 X 10^3 (1.8-7.8); NEUTROPHILS % (AUTO) 56 % (42-75); PLATELET COUNT 406 10^3/uL (130-400); RED CELL DISTRIBUTION WIDTH 13.3 % (10.0-14.5); WHITE BLOOD COUNT 9.2 10^3/uL (4.3-11.0)
[2018-03-09 15:54] LABS: ALANINE AMINOTRANSFERASE 49 U/L (0-55); ALBUMIN 4.2 GM/DL (3.2-4.5); ALKALINE PHOSPHATASE 83 U/L (40-136); BILIRUBIN,TOTAL 0.4 MG/DL (0.1-1.0); BUN/CREATININE RATIO 12; CALCIUM 9.6 MG/DL (8.5-10.1); CARBON DIOXIDE 24 MMOL/L (21-32); CHLORIDE 106 MMOL/L (98-107); CREATININE SERUM 0.69 MG/DL (0.60-1.30); GFR ESTIMATED > 60; GLUCOSE 85 MG/DL (70-105); POTASSIUM 3.7 MMOL/L (3.6-5.0); SODIUM 140 MMOL/L (135-145)
[2018-03-09 17:00] VITALS: BP 117/69
[2018-03-09] MEDS ORDERED: cefTRIAXone 1 GM/NS 50 ML IVPB IV SCH ×2 (17:00)
[2018-03-09] MEDS ORDERED: AZITHROMYCIN 250 MG TAB (ZITHROMAX) PO SCH (17:00)
[2018-03-09] MEDS ORDERED: CATHETER FLUSH 10 ML SYR IV PRN (17:15)
[2018-03-09 17:29] VITALS: BP 123/89
[2018-03-09] MEDS: NS IV 1000 ML 1,000 ML IV SCH (17:43)
[2018-03-09] MEDS: methylPREDNISolone 125 MG (Solu-MEDROL) VIAL IV SCH (17:43)
[2018-03-09] MEDS ORDERED: FLU QUADRIvalent (5+ YOA) 2018-2019 (AFLURIA) 0.5 ML IM ONE (18:00)
[2018-03-09] MEDS: RT-ALBUTEROL SULF 2.5 MG/3 ML PRE-MIX VIAL INH SCH ×2 (19:11→22:43)
[2018-03-09] MEDS ORDERED: RT-ALBUTEROL SULF 2.5 MG/3 ML PRE-MIX VIAL INH PRN (20:00)
[2018-03-09 20:51] VITALS: BP 109/57
[2018-03-10 00:05] VITALS: BP 112/54
[2018-03-10] MEDS: APAP 300 MG/CODEINE 30 MG (TYLENOL #3) TAB PO PRN ×2 (00:22→07:19)
[2018-03-10] MEDS: methylPREDNISolone 125 MG (Solu-MEDROL) VIAL IV SCH ×2 (01:03→08:54)
[2018-03-10] MEDS: RT-ALBUTEROL SULF 2.5 MG/3 ML PRE-MIX VIAL INH SCH ×3 (02:25→10:16)
[2018-03-10] MEDS: NS IV 1000 ML 1,000 ML IV SCH (03:55)
[2018-03-10 04:05] VITALS: BP 105/55
[2018-03-10 07:46] VITALS: BP 118/69
[2018-03-10] MEDS ORDERED: RT-ALBUINH IH (10:35)
[2018-03-10] MEDS ORDERED: DOXY-227 PO (10:38)
[2018-03-10] MEDS ORDERED: PRD10T PO (10:38)
--- NOTE | 2018-03-10 10:40 | Discharge Instructions ---
Discharge [facility] Discharge Medications New, Converted or Re-Newed RX: Transmitted to Pharmacy New Medications: Doxycycline Hyclate (Doxycycline Hyclate) 100 Mg Tablet.dr 100 MG PO BID for 7 Days, #14 TAB Prednisone (Prednisone) 10 Mg Tab 0 PO UD, #42 TAB 0 Refills Take 6 tabs(60mg)daily, decrease by 1 tab(10mg) every other day. Continued Medications: Albuterol Sulfate (Proair Hfa) 1 Puff Puff 2 PUFF IH Q4H PRN for SHORTNESS OF BREATH, PUFF 1 PUFF = 90 MCG Patient Instructions Goal/Follow Up Appt: Follow up with Leonardo Fitzgerald as scheduled- 03/14 at 3:20 pm. Return to The Hospital For: Wheezing and worsening shortness of breath in spite of albuterol. Activity & Diet Discharge Diet: Regular Diet Activity as Tolerated: Yes Copy Copies To 1: NICHOLE Retana BETHANY N MD Mar 10, 2018 10:40 am
--- NOTE | 2018-03-10 10:41 | Short Stay Summary ---
History of Present Illness History of Present Illness Reason for visit/HPI 22 yo female came to ER due to cough for over a month. She was seen at clinic the beginning of Jan and noted to have wheezing, given albuterol and prednisone and she did have some improvement, but was back to just as bad within a couple of days after ending prednisone. She then was seen in [place] ER and given azithromycin which she does not feel made any difference. She also went to the ER in [place] after "passing out" and was given some medicine to "coat her stomach" but she didn't fill it because she didn't think it would help. In the last couple of days she has had nasal congestion as well. She has had some sweats. She denies history of asthma. She did smoke previously, has not been able to do for a few weeks due to her illness. This morning she states she feels much better. Date of Admission Mar 09, 2018 at 4:15 pm Date of Discharge Mar 10, 2018 Time Seen by Provider: 10:00 Attending Physician Serenity Calvo DO [facility] Allergies and Home Medications Allergies Coded Allergies: No Known Drug Allergies (Unverified , 03/09/18) Home Medications Albuterol Sulfate 1 Puff Puff, 2 PUFF IH Q4H PRN for SHORTNESS OF BREATH, ( Reported) 1 PUFF = 90 MCG Doxycycline Hyclate 100 Mg Tablet.dr, 100 MG PO BID Prescribed by: CORINNA HUANG on 03/10/18 1038 Prednisone 10 Mg Tab, 0 PO UD Take 6 tabs(60mg)daily, decrease by 1 tab(10mg) every other day. Prescribed by: CORINNA HUANG on 03/10/18 1038 Patient Home Medication List Home Medication List Reviewed: Yes Past Doqrubs-Fdfhzh-Eejecn Hx Patient Social History Alcohol Use: Occasionally Uses Number of Drinks Today: 0 Alcohol Beverage of Choice: Beer Recreational Drug Use: No Smoking Status: Current Someday Smoker Former Smoker, Quit: Feb 19, 2018 Type Used: Cigarettes Physical Abuse Screen: No Sexual Abuse: No Recent Foreign Travel: No Contact w/other who traveled: No Recent Hopitalizations: No Recent Infectious Disease Expo: No Immunizations Up To Date Tetanus Booster (TDap): Less than 5yrs Pediatric: Yes Date of Influenza Vaccine: Mar 10, 2014 Seasonal Allergies Seasonal Allergies: No Surgeries Yes (oral surgery-teeth, bmt) Appendectomy, Ear Surgery, Gallbladder Respiratory No Currently Using CPAP: No Cardiovascular No Neurological No Reproductive System : No Last Menstrual Period: Jan 04, 2018 Hx Reproductive Disorders: No Sexually Transmitted Disease: No HIV/AIDS: No Female Reproductive Disorders: Denies Gastrointestinal Yes Gall Bladder Disease Musculoskeletal No Endocrine History of Endocrine Disorders: No HEENT Loss of Vision: Denies Hearing Impairment: Denies Cancer No Psychosocial History of Psychiatric Problem: No Integumentary History of Skin or Integumenta: No Blood Transfusions History of Blood Disorders: No Family Medical History Significant Family History: Hypertension Family Hx: Alcoholism 19 MOTHER, , Age:30's - 40, Onset:Unknown (All of his life) Hypertension 19 MOTHER, Onset:30's - 40 No Family History of: AIDS Abdominal aortic aneurysm [place]'s disease Alzheimer's disease Aphasia Arthritis Asthma Cancer of mouth Cardiovascular disease Cataracts Colon cancer Completed stroke Congenital disease Congenital heart disease Coronary thrombosis Cystic fibrosis Deafness or hearing loss Dementia Diabetes mellitus Drug abuse Dysphasia Fibrocystic disease of breast Gastroenteritis Glaucoma Headache disorder Hypercholesterolemia Infertility Kidney disease Myocardial infarction Neoplasm Not obtainable due to adoption Osteoporosis Parkinson's disease Prostate cancer Psychosocial problem Respiratory disorder Seizure disorder Severe allergy Thyroid disease Tuberculosis Visual disorder Review of Systems Constitutional: see HPI EENTM: see HPI Respiratory: see HPI Cardiovascular: chest pain (with coughing) Gastrointestinal: No abdominal pain, No diarrhea, No nausea, No vomiting Genitourinary: No dysuria Musculoskeletal: No joint pain Skin: No rash Physical Exam Vital Signs Vital Signs - First Documented 03/09/18 03/09/18 13:13 17:29 Temp 97.0 Pulse 103 Resp 26 B/P (MAP) 123/89 (100) Pulse Ox 98 O2 Delivery Nasal Cannula O2 Flow Rate 3.00 FiO2 32 Capillary Refill : Less Than 3 Seconds Height, Weight, BMI Height: 5'1.00" Weight: 190lbs. 6.0oz. 86.481012df; 36.0 BMI Method:Stated General Appearance: No Apparent Distress, WD/WN Respiratory: No Accessory Muscle Use, No Respiratory Distress, Wheezing (end expiratory) Cardiovascular: Regular Rate, Rhythm, No Murmur Gastrointestinal: Normal Bowel Sounds, Non Tender, Soft Neurologic/Psychiatric: Alert Skin: Normal Color, Warm/Dry Clinical Quality Measures DVT/VTE Risk/Contraindication: Risk Factor Score Per Nursin RFS Level Per Nursing on Admit: 2=Moderate Short Stay Diagnosis Discharge Diagnosis-Short Stay Admission Diagnosis: Pneumonia Wheezing Tobacco use Final Discharge Diagnosis: Pneumonia- given ceftriaxone and azithromycin, discharged with doxycycline given reported history of no improvement with prior azithromycin treatment Wheezing- will give slow prednisone taper, continue albuterol Tobacco use- encouraged cessation Conclusion Labs Laboratory Tests 03/09/18 13:29: White Blood Count 9.2, Red Blood Count 4.60, Hemoglobin 13.1, Hematocrit 41, Mean Corpuscular Volume 88, Mean Corpuscular Hemoglobin 29, Mean Corpuscular Hemoglobin Concent 32, Red Cell Distribution Width 13.3, Platelet Count 406H, Mean Platelet Volume 9.6, Neutrophils (%) (Auto) 56, Lymphocytes (%) (Auto) 28, Monocytes (%) (Auto) 9, Eosinophils (%) (Auto) 6, Basophils (%) (Auto) 1, Neutrophils # (Auto) 5.1, Lymphocytes # (Auto) 2.6, Monocytes # (Auto) 0.8, Eosinophils # (Auto) 0.6H, Basophils # (Auto) 0.1, Sodium Level 140, Potassium Level 3.7, Chloride Level 106, Carbon Dioxide Level 24, Anion Gap 10, Blood Urea Nitrogen 8, Creatinine 0.69, Estimat Glomerular Filtration Rate > 60, BUN/ Creatinine Ratio 12, Glucose Level 85, Calcium Level 9.6, Corrected Calcium 9.4 , Total Bilirubin 0.4, Aspartate Amino Transf (AST/SGOT) 40H, Alanine Aminotransferase (ALT/SGPT) 49, Alkaline Phosphatase 83, Total Protein 7.0, Albumin 4.2 Microbiology 03/09/18 Influenza Types A,B Antigen (VANNA) - Final, Complete Conclusion/Plan See discharge diagnosis Copy Copies To 1: NICHOLE Retana BETHANY N MD Mar 10, 2018 10:41
[2018-03-10 11:58] VITALS: BP 118/69
== END 2018-03-10 10:38 | disposition home or self-care (01) ==
LOC: EDUNIT# 13:09 → ER 13:10 → 4TH 16:15 → UNDOADMOB 16:15 → 4TH 17:00 → UNDODISOB 03-10 11:58
PROVIDERS: ADMIT Family Medicine; ATTEND Family Medicine
DX: J18.9 Pneumonia, unspecified organism (principal); R06.2 Wheezing; F17.210 Nicotine dependence, cigarettes, uncomplicated
CPT/HCPCS: 36415; 71045; 80053; 85025; 87804; 94640; 94664; 94760

== ENCOUNTER → 2018-03-27 | Outpatient (CLI) | payer MEDICAID ==
[~2018-03-27] MED LIST changes: +DOXY-227 PO; +IOHEXOL 350 MG/ML 150 ML (OMNIPAQUE 350) VIAL IV ONE; +NS 250 ML (IVPB) BAG IV ONE; +PRD10T PO; +RECEIVED CONTRAST (Hold Metformin) IV SCH; +RT-ALBUINH IH
[2018-03-27 11:19] LABS: BUN/CREATININE RATIO 13; CREATININE SERUM 0.77 MG/DL (0.60-1.30); GFR ESTIMATED > 60
--- NOTE | 2018-03-27 12:43 | Diagnostic Imaging Report ---
PROCEDURE: CT angiography of the chest with contrast. TECHNIQUE: Multiple contiguous axial images were obtained through the chest after uneventful bolus administration of intravenous contrast. 2D reconstructed CTA MIP acquisitions were also performed. INDICATION: Smoker with history of pneumonia and cough. COMPARISON: The exam is interpreted in correlation with a radiograph of the chest dated 03/09/2018. No prior chest CT; however, we can correlate with overlapped images from an abdominal CT dated 09/09/2015. FINDINGS: There are no intraluminal pulmonary arterial filling defects. There are no findings of pulmonary arterial embolus. There is only minimal residual infiltrate in the left lung base anteriorly at the inferior aspect of the lingular segment of the left upper lobe where there may be some residual pneumonia as well as improvements in partial atelectasis. The remaining lobes and segments of the lungs appear clear and normally expanded. No effusion or pneumothorax. No mass or lymphadenopathy. The upper abdomen is nonacute. IMPRESSION: The findings suggest improvements and near resolution of pneumonia in the lingula and mild left anterobasilar atelectasis. Negative for PE or acute aortic disease. No thoracic effusion or fluid collection. No mass or adenopathy. Negative aorta. Dictated by: Dictated on workstation # [id number]
== END ==
LOC: RAD 10:47
PROVIDERS: ATTEND Nurse Practitioner Family
DX: J18.9 Pneumonia, unspecified organism (principal); J98.11 Atelectasis; F17.200 Nicotine dependence, unspecified, uncomplicated; G47.10 Hypersomnia, unspecified; E66.9 Obesity, unspecified
CPT/HCPCS: 36415; 71275; 82565; 84520; 84703

== ENCOUNTER → 2018-04-11 | Outpatient (CLI) | payer MEDICAID ==
[~2018-04-11] MED LIST changes: -IOHEXOL 350 MG/ML 150 ML (OMNIPAQUE 350) VIAL IV ONE; -NS 250 ML (IVPB) BAG IV ONE; -RECEIVED CONTRAST (Hold Metformin) IV SCH; +RT-ALBUTEROL SULF 2.5 MG/3 ML PRE-MIX VIAL INH ONE
== END ==
LOC: RT 16:24
PROVIDERS: ATTEND Nurse Practitioner Family
DX: R06.02 Shortness of breath (principal); J30.2 Other seasonal allergic rhinitis; G47.10 Hypersomnia, unspecified; R05 Cough; J18.9 Pneumonia, unspecified organism; E66.9 Obesity, unspecified

== ENCOUNTER 2018-11-03 10:12 | Emergency (ER) | payer MEDICAID ==
[~2018-11-03] VITALS: Ht 152.4 cm; Wt 87.1 kg
[~2018-11-03 10:12] MED LIST changes: -HYDR-3454 PO; +HYDR-3455 PO; -RT-ALBUTEROL SULF 2.5 MG/3 ML PRE-MIX VIAL INH ONE
--- OUTSIDE RECORDS SUMMARY | 2018-11-03 10:27 | XMS REPORT ---
Author Author Migration, Doctor Organization [facility] Address Unknown Phone Unavailable Care Team Providers Care Transmission Technician Name Role Phone Migration, Doctor Unavailable Unavailable PROBLEMS Type Condition ICD9-CM Code AAD25-NE Code Onset Dates Condition Status SNOMED Code Problem Depression F32.9 Active 01546223 Problem Urinary hesitancy R39.11 Active 6170070 Problem Seasonal allergic rhinitis, unspecified allergic rhinitis trigger J30.2 Active 194244357 Problem Current moderate episode of major depressive disorder without prior episode F32.1 Active 37482944 ALLERGIES No Information ENCOUNTERS Encounter Location Date Diagnosis [address] [id number] Jul, [address] [id number] Jul, [address] [id number] Jul, High risk sexual behavior, unspecified type Z72.51 ; Concern about sexually transmitted disease in female without diagnosis Z71.1 ; Vaginal discharge N89.8 and Urinary hesitancy R39.11 [place] [id number] [place] [address] [id number] Jun, Current moderate episode of major depressive disorder without prior episode F32.1 [place] [id number] [place] [address] [id number] Jun, Contraception management Z30.9 ; Contraceptive education Z30.09 and Encounter for Depo-Provera contraception Z30.[address] [id number] Mar, [address] [id number] Mar, Chest congestion R09.89 ; SOB (shortness of breath) R06.02 and Expiratory wheezing R06.2 [facility] [address] [address] Mar, Pneumonia J18.9 [facility] [id number] [place] [address] [id number] Mar, [facility] [id number] [place] [address] [id number] Mar, Pneumonia J18.9 and Wheezing on auscultation R06.2 [facility] [id number] [place] [address] [id number] Mar, [facility] [address] [id number] Mar, Abscess of upper lobe of left lung with pneumonia J85.1 and Encounter for Depo- Provera contraception Z30.42 [facility] [id number] [place] [address] [id number] Mar, Persistent cough for 3 weeks or longer R05 [facility] [id number] [place] [address] Mar, Persistent cough R05 [facility] [id number] [place] [address] [id number] Jan, [facility] [id number] [place] [address] [id number] Jan, Persistent cough R05 [facility] [id number] [place] [address] [id number] Jan, [facility] [id number] [place] [address] [id number] Jan, Pneumonitis J18.9 [facility] [id number] [place] [address] [id number] Jan, Pneumonitis J18.9 [facility] [id number] [place] [address] [id number] Nov, Encounter for Depo-Provera contraception Z30.42 and Acute cystitis with hematuria N30.01 [facility] [id number] [place] [address] [id number] August, Encounter for Depo-Provera contraception Z30.42 [facility] [id number] [place] [address] [id number] May, Encounter for Depo-Provera contraception Z30.[address] [id number] [id number] 27 Mar, 2017 Dysuria R30.0 ; Trichomonas infection A59.9 ; Vaginal discharge N89.8 ; Other microscopic hematuria R31.29 ; Urinary tract infection, site not specified N39.0 and Hematuria, unspecified R31.9 [address] [place] [address] [id number] Mar, Well woman exam (no gynecological exam) Z00.00 ; control counseling Z30.09 ; Encounter for initial prescription of injectable contraceptive Z30.013 and Encounter for Depo-Provera contraception Z30.42 [place] [id number] [place] [address] [id number] 16 Sep, 2016 [address] [place] [address] [id number] Mar, Common cold J00 ; Sore throat J02.9 ; Cough R05 and Post-nasal drainage R09.82 [address] [place] [address] [id number] Mar, Acute pharyngitis due to other specified organisms J02.8 and Sinus congestion R09.81 [address]005[address] [id number] Mar, Seasonal allergic rhinitis, unspecified allergic rhinitis trigger J30.2 ; Post-nasal drip R09.82 and Sore throat J02.9 [facility] [address]65[address], [place] [address] Jul, [facility] [id number] [place] [address] Jul, [facility] [id number] [place] [address] August, [address] [place] [address] [id number] Jul, [facility] [id number] [place] [address] Jul, [facility] [address] [id number] [place] [id number] Jul, [facility] [place] [facility] [address] [facility] [id number], [place] [address] Jul, [facility] [address] [id number] [place] [id number] Jun, [facility] [place] [facility] [address] [facility] [id number] [place] [address] Jun, [facility] [place] [facility] [address] [facility] [id number], [place] [address] Dec, [facility] [address] [id number] [place] [id number] Dec, [facility] [address] [id number] [place] [phone] Jun, [facility] [address] [id number] [place] [phone] Jun, [facility] [address] [id number] [place] [id number] May, [facility] [address] [id number] [place] [id number] Mar, [facility] [address], [place] [address] Mar, [facility] [place] [facility] [address], [place] [address] Dec, [facility] [address] [facility] [id number] [place] [phone] Jul, [facility] [address] [facility] [id number] [place] [phone] Jul, [facility] [place] [facility] [address], [place] [address] Mar, [facility] [place] [facility] [id number], [place] [address] Mar, [facility] [place] [facility] [address], [place] [address] Mar, [facility] [address] [facility] [id number] [place] [address] Mar, IMMUNIZATIONS No Known Immunizations SOCIAL HISTORY Never Assessed REASON FOR VISIT [place] [place] VITAL SIGNS MEDICATIONS Unknown Medications RESULTS No Results PROCEDURES No Known procedures INSTRUCTIONS MEDICATIONS ADMINISTERED No Known Medications MEDICAL (GENERAL) HISTORY Type Description Date Surgical History appendectomy Surgical History cholecystectomy Surgical History dental Hospitalization History surgeries/child Hospitalization History URI 02/16/18 Hospitalization History Syncope 02/17/18 Hospitalization History SOA - pneumonia 03/2018
--- OUTSIDE RECORDS SUMMARY | 2018-11-03 10:27 | XMS REPORT ---
Author Author Migration, Doctor Organization [facility] Address Unknown Phone Unavailable Care Team Providers Care Parts Assembler Name Role Phone Migration, Doctor Unavailable Unavailable PROBLEMS Type Condition ICD9-CM Code TVT72-AB Code Onset Dates Condition Status SNOMED Code Problem Depression F32.9 Active 93996466 Problem Urinary hesitancy R39.11 Active 2391647 Problem Seasonal allergic rhinitis, unspecified allergic rhinitis trigger J30.2 Active 469802163 Problem Current moderate episode of major depressive disorder without prior episode F32.1 Active 30247799 ALLERGIES No Information ENCOUNTERS Encounter Location Date Diagnosis [address] [id number] Jul, [address] [id number] Jul, [address] [id number] Jul, High risk sexual behavior, unspecified type Z72.51 ; Concern about sexually transmitted disease in female without diagnosis Z71.1 ; Vaginal discharge N89.8 and Urinary hesitancy R39.11 [place] [id number] [place] [address] [id number] Jun, Current moderate episode of major depressive disorder without prior episode F32.1 [place] [id number] [place] [address] [id number] Jun, Contraception management Z30.9 ; Contraceptive education Z30.09 and Encounter for Depo-Provera contraception Z30.[address] [id number] Mar, [address] [id number] Mar, Chest congestion R09.89 ; SOB (shortness of breath) R06.02 and Expiratory wheezing R06.2 [facility] [address] [address] Mar, Pneumonia J18.9 [facility] [id number] [place] [address] [id number] Mar, [facility] [id number] [place] [address] [id number] Mar, Pneumonia J18.9 and Wheezing on auscultation R06.2 [facility] [id number] [place] [address] [id number] Mar, [facility] [address] [id number] Mar, Abscess of upper lobe of left lung with pneumonia J85.1 and Encounter for Depo- Provera contraception Z30.42 [facility] [id number] [place] [address] [id number] Mar, Persistent cough for 3 weeks or longer R05 [facility] [id number] [place] [address] Mar, Persistent cough R05 [facility] [id number] [place] [address] [id number] Jan, [facility] [id number] [place] [address] [id number] Jan, Persistent cough R05 [facility] [id number] [place] [address] [id number] Jan, [facility] [id number] [place] [address] [id number] Jan, Pneumonitis J18.9 [facility] [id number] [place] [address] [id number] Jan, Pneumonitis J18.9 [facility] [id number] [place] [address] [id number] Nov, Encounter for Depo-Provera contraception Z30.42 and Acute cystitis with hematuria N30.01 [facility] [id number] [place] [address] [id number] August, Encounter for Depo-Provera contraception Z30.42 [facility] [id number] [place] [address] [id number] May, Encounter for Depo-Provera contraception Z30.[address] [id number] [id number] 27 Mar, 2017 Dysuria R30.0 ; Trichomonas infection A59.9 ; Vaginal discharge N89.8 ; Other microscopic hematuria R31.29 ; Urinary tract infection, site not specified N39.0 and Hematuria, unspecified R31.[address] [place] [address] [id number] Mar, Well woman exam (no gynecological exam) Z00.00 ; control counseling Z30.09 ; Encounter for initial prescription of injectable contraceptive Z30.013 and Encounter for Depo-Provera contraception Z30.42 [place] [id number] [place] [address] [id number] 16 Sep, [address] [place] [address] [id number] Mar, Common cold J00 ; Sore throat J02.9 ; Cough R05 and Post-nasal drainage R09.82 [address] [place] [address] [id number] Mar, Acute pharyngitis due to other specified organisms J02.8 and Sinus congestion R09.81 [address] [id number] Mar, Seasonal allergic rhinitis, unspecified allergic rhinitis trigger J30.2 ; Post-nasal drip R09.82 and Sore throat J02.9 [facility] [address]00565[address], [place] [address] Jul, [facility] [id number] [place] [address] Jul, [facility] [address] [id number] [place] [address] August, [address] [place] [address] [id number] Jul, [facility] [address] [id number] [place] [address] Jul, [facility] [address] [id number] [place] [phone] Jul, [facility] [place] [facility] [address] [facility] [id number], [place] [address] Jul, [facility] [address] [id number] [place] [phone] Jun, [facility] [place] [facility] [address] [facility] [id number] [place] [address] Jun, [facility] [place] [facility] [address] [facility] [id number], [place] [address] Dec, [facility] [address] [id number] [place] [phone] Dec, [facility] [address] [id number] [place] [id number] Jun, [facility] [address] [id number] [place] [id number] Jun, [facility] [address] [id number] [place] [phone] May, [facility] [address] [id number] [place] [id number] Mar, [facility] [address], [place] [address] Mar, [facility] [place] [facility] [address], [place] [address] Dec, [facility] [address] [facility] [id number] [place] [phone] Jul, [facility] [address] [facility] [id number] [place] [id number] Jul, [facility] [place] [facility] [address], [place] [address] Mar, [facility] [place] [facility] [address] [id number], [place] [address] Mar, [facility] [place] [facility] [address], [place] [address] Mar, [facility] [address] [facility] [id number] [place] [address] Mar, IMMUNIZATIONS No Known Immunizations SOCIAL HISTORY Never Assessed REASON FOR V[place]IT [place] [place] VITAL SIGNS MEDICATIONS Unknown Medications RESULTS No Results PROCEDURES No Known procedures INSTRUCTIONS MEDICATIONS ADMINISTERED No Known Medications MEDICAL (GENERAL) HISTORY Type Description Date Surgical History appendectomy Surgical History cholecystectomy Surgical History dental Hospitalization History surgeries/child Hospitalization History URI 02/16/18 Hospitalization History Syncope 02/17/18 Hospitalization History SOA - pneumonia 03/2018
--- OUTSIDE RECORDS SUMMARY | 2018-11-03 10:28 | XMS REPORT ---
Author Author Migration, Doctor Organization [facility] Address Unknown Phone Unavailable Care Team Providers Care Residential Sales Rep Name Role Phone Migration, Doctor Unavailable Unavailable PROBLEMS Type Condition ICD9-CM Code KXW84-[place] Code Onset Dates Condition Status SNOMED Code Problem Depression F32.9 Active 04906349 Problem Urinary hesitancy R39.11 Active 1371590 Problem Seasonal allergic rhinitis, unspecified allergic rhinitis trigger J30.2 Active 239286622 Problem Current moderate episode of major depressive disorder without prior episode F32.1 Active 68319985 ALLERGIES No Information ENCOUNTERS Encounter Location Date Diagnosis [place] [id number] [place] [address] [id number] Jul, [place] [address] [place] [address] [id number] Jul, [address] [id number] Jul, [place] [address] [place] [address] [id number] Jul, High risk sexual behavior, unspecified type Z72.51 ; Concern about sexually transmitted disease in female without diagnosis Z71.1 ; Vaginal discharge N89.8 and Urinary hesitancy R39.11 [place] [address] [place] [address] [id number] Jun, Current moderate episode of major depressive disorder without prior episode F32.1 [place] [address] [place] [address] [id number] Jun, Contraception management Z30.9 ; Contraceptive education Z30.09 and Encounter for Depo-Provera contraception Z30.42 [place] [address] [place] [address] [id number] Mar, [address] [id number] Mar, Chest congestion R09.89 ; SOB (shortness of breath) R06.02 and Expiratory wheezing R06.2 [facility] [id number] [place] [address] Mar, Pneumonia J18.9 [facility] [id number] [place] [address] [id number] Mar, [facility] [id number] [place] [address] [id number] Mar, Pneumonia J18.9 and Wheezing on auscultation R06.2 [facility] [address] [id number] Mar, [facility] [address] [id number] Mar, Abscess of upper lobe of left lung with pneumonia J85.1 and Encounter for Depo- Provera contraception Z30.42 [facility] [id number] [place] [address] [id number] Mar, Persistent cough for 3 weeks or longer R05 [facility] [id number] [place] [address] Mar, Persistent cough R05 [facility] [id number] [place] [address] [id number] Jan, [facility] [id number] [place] [address] [id number] Jan, Persistent cough R05 [facility] [id number] [place] [address] [id number] Jan, [facility] [id number] [place] [address] [id number] Jan, Pneumonitis J18.9 [facility] [address] [place] [address] [id number] Jan, Pneumonitis J18.9 [facility] [address] [id number] Nov, Encounter for Depo-Provera contraception Z30.42 and Acute cystitis with hematuria N30.01 [facility] [address] [place] [address] [id number] August, Encounter for Depo-Provera contraception Z30.42 [address] [id number] May, Encounter for Depo-Provera contraception Z30.42 [address] [place] [address] [id number] 27 Mar, 2017 Dysuria R30.0 ; Trichomonas infection A59.9 ; Vaginal discharge N89.8 ; Other microscopic hematuria R31.29 ; Urinary tract infection, site not specified N39.0 and Hematuria, unspecified R31.9 [address] [place] [address] [id number] 08 Mar, 2017 Well woman exam (no gynecological exam) Z00.00 ; control counseling Z30.09 ; Encounter for initial prescription of injectable contraceptive Z30.013 and Encounter for Depo-Provera contraception Z30.42 [place] [id number] [place] [address] [id number] 16 Sep, 2016 [address] [address] [place] [address] [id number] Mar, Common cold J00 ; Sore throat J02.9 ; Cough R05 and Post-nasal drainage R09.82 [place] [address] [place] [address] [id number] Mar, Acute pharyngitis due to other specified organisms J02.8 and Sinus congestion R09.[address] [id number] [id number] Mar, Seasonal allergic rhinitis, unspecified allergic rhinitis trigger J30.2 ; Post-nasal drip R09.82 and Sore throat J02.9 [facility] [address] [place] [address] Jul, [facility] [address] [address] Jul, [facility] [id number] [place] [address] August, [place] [id number] [place] [address] [id number] Jul, [facility] [place] [facility] [address] [facility] [id number] [place] [address] Jul, [facility] [address] [id number] [place] [phone] Jul, [facility] [place] [facility] [address] [facility] [id number] [address] Jul, [facility] [address] [id number] [place] [id number] Jun, [facility] [place] [facility] [address] [facility] [id number] [place] [address] Jun, [facility] [place] [facility] [id number] [place] [address], [place] [address] Dec, [facility] [address] [id number] [place] [id number] Dec, [facility] [address] [id number] [place] [phone] Jun, [facility] [address] [id number] [place] [id number] Jun, [facility] [address] [id number] [place] [phone] May, [facility] [address] [id number] [place] [id number] Mar, [facility] [place] [facility] [address]005[address]100[place] [address] Mar, [facility] [place] [facility] [address] [facility] [id number] [place] [address] Dec, [facility] [address] [id number] [place] [id number] Jul, [facility] [address] [facility] [id number] [place] [phone] Jul, [facility] [place] [facility] [address] [facility] [id number] [place] [address] Mar, [facility] [place] [facility] [address] [address] Mar, [facility] [address] [facility] [id number] [place] [address] Mar, [facility] [address] [facility] [id number] [place] [address] Mar, IMMUNIZATIONS No Known Immunizations SOCIAL HISTORY Never Assessed REASON FOR VISIT [place] [place] VITAL SIGNS MEDICATIONS Unknown Medications RESULTS No Results PROCEDURES No Known procedures INSTRUCTIONS MEDICATIONS ADMINISTERED No Known Medications MEDICAL (GENERAL) HISTORY Type Description Date Surgical History appendectomy Surgical History cholecystectomy Surgical History dental Hospitalization History surgeries/child Hospitalization History URI 02/16/18 Hospitalization History Syncope 02/17/18 Hospitalization History SOA - pneumonia 03/2018
--- OUTSIDE RECORDS SUMMARY | 2018-11-03 10:28 | XMS REPORT ---
Author Author THELMA BUTT [facility] Address [address] [place] [address] Care Team Providers Care Home Economics Teacher Name Role Phone THELMA BUTT Unavailable PROBLEMS Type Condition ICD9-CM Code IDO00-HQ Code Onset Dates Condition Status SNOMED Code Problem Seasonal allergic rhinitis, unspecified allergic rhinitis trigger J30.2 Active 967910279 ALLERGIES No Information ENCOUNTERS Encounter Location Date Diagnosis [facility] [address] [id number] Mar, [address] [id number] Mar, Pneumonia J18.9 and Wheezing on auscultation R06.[address] [id number] Mar, [facility] [id number] [place] [address] [id number] Mar, Abscess of upper lobe of left lung with pneumonia J85.1 and Encounter for Depo- Provera contraception Z30.42 [facility] [id number] [place] [address] [id number] Mar, Persistent cough for 3 weeks or longer R05 [facility] [id number] [place] [address] Mar, Persistent cough R05 [facility] [id number] [place] [address] [id number] Jan, [id number] [place] [address] [id number] Jan, Persistent cough R05 [facility] [id number] [place] [address] [id number] Jan, [address] [id number] Jan, Pneumonitis J18.[address] [id number] [id number] Jan, Pneumonitis J18.9 [address] [place] [address] [id number] Nov, Encounter for Depo-Provera contraception Z30.42 and Acute cystitis with hematuria N30.01 [id number] [place] [address] [id number] August, Encounter for Depo-Provera contraception Z30.42 [address] [place] [address] [id number] May, Encounter for Depo-Provera contraception Z30.42 [address] [place] [address] [id number] Mar, Dysuria R30.0 ; Trichomonas infection A59.9 ; Vaginal discharge N89.8 ; Other microscopic hematuria R31.29 ; Urinary tract infection, site not specified N39.0 and Hematuria, unspecified R31.9 [address] [place] [address] [id number] Mar, Well woman exam (no gynecological exam) Z00.00 ; control counseling Z30.09 ; Encounter for initial prescription of injectable contraceptive Z30.013 and Encounter for Depo-Provera contraception Z30.42 [address] [place] [address] [id number] Sep, [address] [place] [address] [id number] Mar, Common cold J00 ; Sore throat J02.9 ; Cough R05 and Post-nasal drainage R09.[address] [id number] [id number] Mar, Acute pharyngitis due to other specified organisms J02.8 and Sinus congestion R09.[address] [id number] [id number] Mar, Seasonal allergic rhinitis, unspecified allergic rhinitis trigger J30.2 ; Post-nasal drip R09.82 and Sore throat J02.9 [facility] [address]00565100[place] [address] Jul, [facility] [address] [place] [address] Jul, [facility] [id number] [address] August, [facility] [id number] [place] [address] [id number] Jul, [facility] [address] [place] [address] Jul, [facility] [id number] [place] [address] [id number] Jul, [facility] [address] [place] [phone] Jul, [facility] [id number] [place] [address] [id number] Jun, [facility] [id number] [address] Jun, [facility] [address] [place] [phone] Dec, [facility] [id number] [place] [address] [id number] Dec, [facility] [id number][place] [id number] Jun, [facility] [id number], [place] [id number] Jun, [facility] [address] [id number] [id number] May, [facility] [id number] [place] [address] [id number] Mar, [facility] [place] [facility] [address] [address] Mar, [facility] [id number] [place] [phone] Dec, [facility] [address] [facility] [id number] [place] [id number] Jul, [facility] [address] [id number] [id number] Jul, [facility] [address] [address] Mar, [facility] [id number] [address] Mar, [facility] [address] [id number] [address] Mar, [facility] [address]00565[address] [address] Mar, IMMUNIZATIONS No Known Immunizations SOCIAL HISTORY Never Assessed REASON FOR VISIT Medication refill request PLAN OF CARE VITAL SIGNS MEDICATIONS Unknown Medications RESULTS No Results PROCEDURES No Known procedures INSTRUCTIONS MEDICATIONS ADMINISTERED No Known Medications MEDICAL (GENERAL) HISTORY Type Description Date Surgical History appendectomy Surgical History cholecystectomy Surgical History dental Hospitalization History surgeries/child Hospitalization History URI 02/16/18 Hospitalization History Syncope 02/17/18
--- OUTSIDE RECORDS SUMMARY | 2018-11-03 10:28 | XMS REPORT ---
Author Author Migration, Doctor Organization [facility] Address Unknown Phone Unavailable Care Team Providers Care Combat Engineer Name Role Phone Migration, Doctor Unavailable Unavailable PROBLEMS Type Condition ICD9-CM Code JIM84-QA Code Onset Dates Condition Status SNOMED Code Problem Depression F32.9 Active 77894627 Problem Urinary hesitancy R39.11 Active 6825379 Problem Seasonal allergic rhinitis, unspecified allergic rhinitis trigger J30.2 Active 769171815 Problem Current moderate episode of major depressive disorder without prior episode F32.1 Active 71828103 ALLERGIES No Information ENCOUNTERS Encounter Location Date Diagnosis [address] [id number] Jul, [address] [id number] Jul, [address] [id number] Jul, High risk sexual behavior, unspecified type Z72.51 ; Concern about sexually transmitted disease in female without diagnosis Z71.1 ; Vaginal discharge N89.8 and Urinary hesitancy R39.[id number] [place] [address] [id number] Jun, Current moderate episode of major depressive disorder without prior episode F32.1 [id number] [place] [address] [id number] Jun, Contraception management Z30.9 ; Contraceptive education Z30.09 and Encounter for Depo-Provera contraception Z30.[address] [id number] Mar, [address] [id number] Mar, Chest congestion R09.89 ; SOB (shortness of breath) R06.02 and Expiratory wheezing R06.2 [facility] [address] [address] Mar, Pneumonia J18.9 [facility] [id number] [place] [address] [id number] Mar, [facility] [id number] [place] [address] [id number] Mar, Pneumonia J18.9 and Wheezing on auscultation R06.2 [facility] [id number] [place] [address] [id number] Mar, [facility] [address] [id number] Mar, Abscess of upper lobe of left lung with pneumonia J85.1 and Encounter for Depo- Provera contraception Z30.42 [facility] [id number] [place] [address] [id number] Mar, Persistent cough for 3 weeks or longer R05 [facility] [id number] [place] [address] Mar, Persistent cough R05 [facility] [id number] [place] [address] [id number] Jan, [facility] [id number] [place] [address] [id number] Jan, Persistent cough R05 [facility] [id number] [place] [address] [id number] Jan, [facility] [id number] [place] [address] [id number] Jan, Pneumonitis J18.9 [facility] [id number] [place] [address] [id number] Jan, Pneumonitis J18.9 [facility] [id number] [place] [address] [id number] Nov, Encounter for Depo-Provera contraception Z30.42 and Acute cystitis with hematuria N30.01 [facility] [id number] [place] [address] [id number] August, Encounter for Depo-Provera contraception Z30.42 [facility] [id number] [place] [address] [id number] May, Encounter for Depo-Provera contraception Z30.[address] [id number] [id number] 27 Mar, 2017 Dysuria R30.0 ; Trichomonas infection A59.9 ; Vaginal discharge N89.8 ; Other microscopic hematuria R31.29 ; Urinary tract infection, site not specified N39.0 and Hematuria, unspecified R31.[address] [place] [address] [id number] Mar, Well woman exam (no gynecological exam) Z00.00 ; control counseling Z30.09 ; Encounter for initial prescription of injectable contraceptive Z30.013 and Encounter for Depo-Provera contraception Z30.42 [id number] [place] [address] [id number] 16 Sep, [address] [place] [address] [id number] Mar, Common cold J00 ; Sore throat J02.9 ; Cough R05 and Post-nasal drainage R09.[address] [place] [address] [id number] Mar, Acute pharyngitis due to other specified organisms J02.8 and Sinus congestion R09.81 [address]00565[address] [id number] Mar, Seasonal allergic rhinitis, unspecified allergic rhinitis trigger J30.2 ; Post-nasal drip R09.82 and Sore throat J02.9 [facility] [address]00565100[place], [place] [address] Jul, [facility] [id number] [place] [address] Jul, [facility] [id number] [place] [address] August, [address] [place] [address] [id number] Jul, [facility] [id number] [place] [address] Jul, [facility] [address] [id number] [place] [phone] Jul, [facility] [place] [facility] [address] [facility] [id number], [place] [address] Jul, [facility] [address] [id number] [place] [phone] Jun, [facility] [place] [facility] [address] [facility] [id number] [place] [address] Jun, [facility] [place] [facility] [address] [facility] [id number], [place] [address] Dec, [facility] [address] [id number] [place] [id number] Dec, [facility] [address] [id number] [place] [phone] Jun, [facility] [address] [id number] [place] [phone] Jun, [facility] [address] [id number] [place] [id number] May, [facility] [address] [id number] [place] [phone] Mar, [facility] [address]00565100[place], [place] [address] Mar, [facility] [place] [facility] [address]00565100[place], [place] [address] Dec, [facility] [address] [facility] [id number] [place] [phone] Jul, [facility] [address] [facility] [id number] [place] [phone] Jul, [facility] [place] [facility] [address]00565100[place], [place] [address] Mar, [facility] [place] [facility] [address] [id number] [address] Mar, [facility] [place] [facility] [address], [place] [address] Mar, [facility] [address] [facility] [id number] [place] [address] Mar, IMMUNIZATIONS No Known Immunizations SOCIAL HISTORY Never Assessed REASON FOR VISIT [facility] PLAN OF CARE VITAL SIGNS MEDICATIONS Unknown Medications RESULTS No Results PROCEDURES No Known procedures INSTRUCTIONS MEDICATIONS ADMINISTERED No Known Medications MEDICAL (GENERAL) HISTORY Type Description Date Surgical History appendectomy Surgical History cholecystectomy Surgical History dental Hospitalization History surgeries/child Hospitalization History URI 02/16/18 Hospitalization History Syncope 02/17/18 Hospitalization History SOA - pneumonia 03/2018
--- OUTSIDE RECORDS SUMMARY | 2018-11-03 10:28 | XMS REPORT ---
Author Author Migration, Doctor Organization [facility] Address Unknown Phone Unavailable Care Team Providers Care Forming Yardage Control Operator Name Role Phone Migration, Doctor Unavailable Unavailable PROBLEMS Type Condition ICD9-CM Code LLX40-EO Code Onset Dates Condition Status SNOMED Code Problem Depression F32.9 Active 11157740 Problem Urinary hesitancy R39.11 Active 5694756 Problem Seasonal allergic rhinitis, unspecified allergic rhinitis trigger J30.2 Active 204686522 Problem Current moderate episode of major depressive disorder without prior episode F32.1 Active 86234530 ALLERGIES No Information ENCOUNTERS Encounter Location Date Diagnosis [id number] [place] [id number] Jul, [address] [id number] Jul, High risk sexual behavior, unspecified type Z72.51 ; Concern about sexually transmitted disease in female without diagnosis Z71.1 ; Vaginal discharge N89.8 and Urinary hesitancy R39.11 [id number] [place] [address] [id number] Jun, Current moderate episode of major depressive disorder without prior episode F32.1 [id number] [place] [address] [id number] Jun, Contraception management Z30.9 ; Contraceptive education Z30.09 and Encounter for Depo-Provera contraception Z30.42 [address] [id number] [place] [address] [id number] Mar, [address] [place] [address] [id number] Mar, Chest congestion R09.89 ; SOB (shortness of breath) R06.02 and Expiratory wheezing R06.2 [facility] [id number] [place] [address] Mar, Pneumonia J18.9 [id number] [id number] Mar, [facility] [id number] [place] [address] [id number] Mar, Pneumonia J18.9 and Wheezing on auscultation R06.2 [facility] [id number] [place] [address] [id number] Mar, [facility] [id number] [place] [address] [id number] Mar, Abscess of upper lobe of left lung with pneumonia J85.1 and Encounter for Depo- Provera contraception Z30.42 [facility] [id number] [place] [address] [id number] Mar, Persistent cough for 3 weeks or longer R05 [facility] [address] [id number] [address] Mar, Persistent cough R05 [facility] [id number] [place] [address] [id number] Jan, [facility] [id number] [place] [address] [id number] Jan, Persistent cough R05 [facility] [id number] [place] [address] [id number] Jan, [facility] [id number] [place] [address] [id number] Jan, Pneumonitis J18.9 [facility] [id number] [place] [address] [id number] Jan, Pneumonitis J18.9 [facility] [id number] [place] [address] [id number] Nov, Encounter for Depo-Provera contraception Z30.42 and Acute cystitis with hematuria N30.01 [facility] [id number] [place] [address] [id number] August, Encounter for Depo-Provera contraception Z30.42 [facility] [id number] [place] [address] [id number] May, Encounter for Depo-Provera contraception Z30.42 [facility] [id number] Mar, Dysuria R30.0 ; Trichomonas infection A59.9 ; Vaginal discharge N89.8 ; Other microscopic hematuria R31.29 ; Urinary tract infection, site not specified N39.0 and Hematuria, unspecified R31.9 [address]005[address]100[place] [id number] Mar, Well woman exam (no gynecological exam) Z00.00 ; control counseling Z30.09 ; Encounter for initial prescription of injectable contraceptive Z30.013 and Encounter for Depo-Provera contraception Z30.42 [id number] [place] [address] [id number] 16 Sep, 2016 [id number] [place] [address] [id number] Mar, Common cold J00 ; Sore throat J02.9 ; Cough R05 and Post-nasal drainage R09.82 [address] [id number] [place] [address] [id number] Mar, Acute pharyngitis due to other specified organisms J02.8 and Sinus congestion R09.[address] [id number] Mar, Seasonal allergic rhinitis, unspecified allergic rhinitis trigger J30.2 ; Post-nasal drip R09.82 and Sore throat J02.9 [facility] [address] [place] [address] Jul, [facility] [id number] [place] [address] Jul, [facility] [id number] [place] [address] August, [address] [place] [address] [id number] Jul, [facility] [id number] [place] [address] Jul, [address] [id number] [place] [address] [id number] Jul, [facility] [place] [facility] [address] [facility] [id number] [place] [address] Jul, [facility] [address] [id number] [place] [id number] Jun, [facility] [place] [facility] [address] [id number] [place] [address] Jun, [facility] [place] [facility] [address] [facility] [id number], [place] [address] Dec, [facility] [address] [id number] [place] [id number] Dec, [facility] [address] [id number] [place] [id number] Jun, [facility] [address] [id number] [place] [id number] Jun, [facility] [address] [id number] [place] [id number] May, [facility] [address] [id number] [place] [id number] Mar, [facility] [place] [facility] [address]005[address]100[place] [address] Mar, [facility] [place] [facility] [address] [id number] [address] Dec, [facility] [address] [id number][place] [id number] Jul, [facility] [address] [facility] [id number] [id number] Jul, [facility] [place] [facility] [address] [facility] [id number] [place] [address] Mar, [facility] [place] [facility] [address] [facility] [id number], [place] [address] Mar, [facility] [place] [facility] [address]005[address]100[place] [address] Mar, [facility] [place] [facility] [address] [id number] [address] Mar, IMMUNIZATIONS No Known Immunizations SOCIAL HISTORY Never Assessed REASON FOR VISIT [facility] PLAN OF CARE VITAL SIGNS MEDICATIONS Medication Instructions Dosage Frequency Start Date End Date Duration Status Bactrim DS 800-160 mg 1 tablet by Oral route 2 times per day for 3 day(s) Dec, Active Omeprazole 20 mg take 1 capsule by Oral route before a meal 2 times per day Jun, Active Amoxicillin 500 mg 1 capsule by Oral route 3 times per day for 10 days May, Active Ultram 50 mg 1 tablet by Oral route every 4-6 hours Dec, Active RESULTS No Results PROCEDURES No Known procedures INSTRUCTIONS MEDICATIONS ADMINISTERED No Known Medications MEDICAL (GENERAL) HISTORY Type Description Date Surgical History appendectomy Surgical History cholecystectomy Surgical History dental Hospitalization History surgeries/child Hospitalization History URI 02/16/18 Hospitalization History Syncope 02/17/18 Hospitalization History SOA - pneumonia 03/2018
--- OUTSIDE RECORDS SUMMARY | 2018-11-03 10:28 | XMS REPORT ---
Author Author BAILEY HENDRICKS [facility] Address [address] [place] [address] Care Team Providers Care Hoop Maker Name Role Phone BAILEY HENDRICKS Unavailable PROBLEMS Type Condition ICD9-CM Code [id number] Code Onset Dates Condition Status SNOMED Code Problem Seasonal allergic rhinitis, unspecified allergic rhinitis trigger J30.2 Active [id number] ALLERGIES No Known Allergies ENCOUNTERS Encounter Location Date Diagnosis [facility] [id number] [place] [address] [id number] Mar, Pneumonia J18.9 and Wheezing on auscultation R06.[address] [id number] Mar, [facility] [address] [id number] Mar, Abscess of upper lobe of left lung with pneumonia J85.1 and Encounter for Depo- Provera contraception Z30.42 [facility] [id number] [place] [address] [id number] Mar, Persistent cough for 3 weeks or longer R05 [facility] [address] [place] [address] Mar, Persistent cough R05 [facility] [id number] [place] [address] [id number] Jan, [facility] [id number] [place] [address] [id number] Jan, Persistent cough R05 [facility] [id number] [place] [address] [id number] Jan, [facility] [id number] [place] [address] [id number] Jan, Pneumonitis J18.[address] [id number] Jan, Pneumonitis J18.9 [facility] [id number] [place] [address] [id number] Nov, Encounter for Depo-Provera contraception Z30.42 and Acute cystitis with hematuria N30.01 [facility] [id number] [place] [address] [id number] August, Encounter for Depo-Provera contraception Z30.[address] [place] [address] [id number] May, Encounter for Depo-Provera contraception Z30.[address] [place] [address] [id number] Mar, Dysuria R30.0 ; Trichomonas infection A59.9 ; Vaginal discharge N89.8 ; Other microscopic hematuria R31.29 ; Urinary tract infection, site not specified N39.0 and Hematuria, unspecified R31.[address] [place] [address] [id number] Mar, Well woman exam (no gynecological exam) Z00.00 ; control counseling Z30.09 ; Encounter for initial prescription of injectable contraceptive Z30.013 and Encounter for Depo-Provera contraception Z30.[address] [place] [address] [id number] Sep, [address] [place] [address] [id number] Mar, Common cold J00 ; Sore throat J02.9 ; Cough R05 and Post-nasal drainage R09.[address] [place] [address] [id number] Mar, Acute pharyngitis due to other specified organisms J02.8 and Sinus congestion R09.[address] [id number] Mar, Seasonal allergic rhinitis, unspecified allergic rhinitis trigger J30.2 ; Post-nasal drip R09.82 [address].9 [facility] [address] [place] [address] Jul, [facility] [address] [facility] [id number] [address] Jul, [facility] [address] [facility] [id number] [place] [address] August, [facility] [address] [facility] [id number] [place] [id number] Jul, [facility] [address] [facility] [id number] [place] [address] Jul, [facility] [address] [id number] [place] [id number] Jul, [facility] [address] [facility] [id number] [place] [address] Jul, [facility] [address] [id number] [phone] Jun, [facility] [address] [id number] [address] Jun, [facility] [address] [facility] [id number] [place] [address] Dec, [facility] [address] [id number][place] [phone] Dec, [facility] [address] [id number][place] [phone] Jun, [facility] [address] [id number][place] [phone] Jun, [facility] [address] [id number][place] [phone] May, [facility] [address] [id number][place] [id number] Mar, [facility] [address] [facility] [id number] [place] [address] Mar, [facility] [address] [facility] [id number] [place] [address] Dec, [facility] [address] [id number][place] [phone] Jul, [facility] [address] [id number] [place] [phone] Jul, [facility] [address] [facility] [id number] [address] Mar, [facility] [address] [facility] [id number] [address] Mar, [facility] [address] [facility] [id number] [address] Mar, [facility] [address] [facility] [id number] [place] [address] Mar, IMMUNIZATIONS Vaccine Route Administration Date Status ROCEPHIN 1 GM (IM) IM Intramuscular Mar 23, 2018 Administered SOCIAL HISTORY Never Assessed REASON FOR VISIT Pt seen Leonardo for pneumonia f/u on 03/14 adn was released back to work. Pt states she started back with a cough and bodyaches after finishing antibiotics Martina morrison MA PLAN OF CARE Activity Details Follow Up prn Reason: VITAL SIGNS Height 63 in 2018-03-23 Weight 192 lbs 2018-03-23 Temperature 97.4 degrees Fahrenheit 2018-03-23 Heart Rate 110 bpm 2018-03-23 Respiratory Rate 18 2018-03-23 Oximetry 92 % 2018-03-23 BMI 34.01 kg/m2 2018-03-23 Blood pressure systolic 124 mmHg 2018-03-23 Blood pressure diastolic 70 mmHg 2018-03-23 MEDICATIONS Medication Instructions Dosage Frequency Start Date End Date Duration Status Albuterol Sulfate HFA 108 (90 Base) mcg/act Inhalation 4 times a day 2 puffs as needed 6h Jan, Active PredniSONE 20 mg Orally Once a day 1 tablet 24h Mar, 5 days Active Azithromycin 250 MG Orally Once a day 2 tablets on the first day, then 1 tablet daily for 4 days 24h Mar, 5 day(s) Active RESULTS No Results PROCEDURES Procedure Date Ordered Result Body Site ROCEPHIN 1 GM (IM) Mar 23, 2018 THER/PROPH/DIAG INJ, SC/IM Mar 23, 2018 INSTRUCTIONS MEDICATIONS ADMINISTERED No Known Medications MEDICAL (GENERAL) HISTORY Type Description Date Surgical History appendectomy Surgical History cholecystectomy Surgical History dental Hospitalization History surgeries/child Hospitalization History URI 02/16/18 Hospitalization History Syncope 02/17/18
--- OUTSIDE RECORDS SUMMARY | 2018-11-03 10:28 | XMS REPORT ---
Author Author THELMA BUTT [facility] Address [address] [place] [address] Care Team Providers Care Veterinary Assistant Name Role Phone THELMA BUTT Unavailable PROBLEMS Type Condition ICD9-CM Code [id number] Code Onset Dates Condition Status SNOMED Code Problem Seasonal allergic rhinitis, unspecified allergic rhinitis trigger J30.2 Active [id number] ALLERGIES No Information ENCOUNTERS Encounter Location Date Diagnosis [facility] [address] [address] Mar, Pneumonia J18.[address] [id number] Mar, [address] [id number] Mar, Pneumonia J18.9 and Wheezing on auscultation R06.[address] [id number] Mar, [address] [id number] Mar, Abscess of upper lobe of left lung with pneumonia J85.1 and Encounter for Depo- Provera contraception Z30.42 [facility] [address] [id number] Mar, Persistent cough for 3 weeks or longer R05 [facility] [address] [address] Mar, Persistent cough R05 [address] [id number] Jan, [address] [id number] Jan, Persistent cough R05 [address] [id number] Jan, [address] [id number] [place] [id number] Jan, Pneumonitis J18.[address] [id number] Jan, Pneumonitis J18.9 [address] [id number] Nov, Encounter for Depo-Provera contraception Z30.42 and Acute cystitis with hematuria N30.01 [address]100[place] [id number] August, Encounter for Depo-Provera contraception Z30.42 [address] [place] [address] [id number] May, Encounter for Depo-Provera contraception Z30.42 [address]100[place] [id number] Mar, Dysuria R30.0 ; Trichomonas infection A59.9 ; Vaginal discharge N89.8 ; Other microscopic hematuria R31.29 ; Urinary tract infection, site not specified N39.0 and Hematuria, unspecified R31.[address] [place] [address] [id number] Mar, Well woman exam (no gynecological exam) Z00.00 ; control counseling Z30.09 ; Encounter for initial prescription of injectable contraceptive Z30.013 and Encounter for Depo-Provera contraception Z30.[address] [id number] [place]KE[place] [id number] Sep, [address] [id number] [place]KE[place] [id number] Mar, Common cold J00 ; Sore throat J02.9 ; Cough R05 and Post-nasal drainage R09.[address] [id number] [place]KE[place] [id number] Mar, Acute pharyngitis due to other specified organisms J02.8 and Sinus congestion R09.[address]100[place] [id number] Mar, Seasonal allergic rhinitis, unspecified allergic rhinitis trigger J30.2 ; Post-nasal drip R09.82 and Sore throat J02.9 [facility] [place] [address]00565100[place] [address] Jul, [facility] [id number] [place] [address] Jul, [facility] [place] [id number] [place] [address] August, [facility] [id number] [place] [phone] Jul, [facility] [id number] [place] [address] Jul, [facility] [place] [id number] [place] [address] [id number] Jul, [facility] [id number] [place] [address] Jul, [facility] [place] [id number] [place] [id number] Jun, [facility] [id number] [place] [address] Jun, [facility] [address]005[address]100[place] [address] Dec, [facility] [id number] [place] [id number] Dec, [facility] [id number] [place] [id number] Jun, [facility] [address] [id number] [place] [id number] Jun, [facility] [id number] [place] [id number] May, [facility] [id number] [place] [id number] Mar, [facility] [place] [id number] [place] [address] Mar, [facility] [address] [id number] [address] Dec, [facility] [address]005[address]100[place] [phone] Jul, [facility] [address] [id number] [place] [id number] Jul, [facility] [address]100[place] [address] Mar, [facility] [address]100[place] [address] Mar, [facility] [address]005[address]100[place] [address] Mar, [facility] [address]100[place] [address] Mar, IMMUNIZATIONS No Known Immunizations SOCIAL HISTORY Never Assessed REASON FOR VISIT phone call/Albuterol refill PLAN OF CARE VITAL SIGNS MEDICATIONS Medication [...]
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
[2018-11-03] MEDS ORDERED: KETOROLAC 30 MG/ML VIAL IVP ONE (10:45)
[2018-11-03] MEDS ORDERED: LACTATED RINGERS 1,000 ML IV SCH (10:45)
[2018-11-03] MEDS ORDERED: fentaNYL INJECTION 100 MCG/2 ML AMP IVP ONE (10:45)
--- NOTE | 2018-11-03 10:51 | ED EENT ---
History of Present Illness General Stated Complaint: FEVER / SORE THROAT Source: patient Exam Limitations: no limitations History of Present Illness Date Seen by Provider: Nov 03, 2018 Time Seen by Provider: 10:49 Initial Comments To ER with a 2 to three-day history of fever up to 102.8 at home, severe sore throat mostly on the right side, difficulty swallowing and with pain. No cough nausea vomiting Timing/Duration: abrupt Severity: moderate Location: throat Associated Symptoms: sore throat Allergies and Home Medications Allergies Coded Allergies: No Known Drug Allergies (Unverified , 03/09/18) Home Medications Albuterol Sulfate 1 Puff Puff, 2 PUFF IH Q4H PRN for SHORTNESS OF BREATH, (Reported) 1 PUFF = 90 MCG Amoxicillin/Potassium Clav 1 Each Tablet, 1 EACH PO BID Prescribed by: MEETA DOYLE on 11/03/18 1150 Doxycycline Hyclate 100 Mg Tablet.dr, 100 MG PO BID Prescribed by: CORINNA HUANG on 03/10/18 1038 Ondansetron 8 Mg Tab.rapdis, 8 MG PO Q6H PRN for NAUSEA/VOMITING Prescribed by: MEETA DOYLE on 11/03/18 1150 Prednisone 10 Mg Tab, 0 PO UD Take 6 tabs(60mg)daily, decrease by 1 tab(10mg) every other day. Prescribed by: CORINNA HUANG on 03/10/18 1038 Prednisone 10 Mg Tab.ds.pk, 10 MG PO DAILY Take 6 tabs(60mg)daily,decrease by 1 tab(10MG)daily. Prescribed by: MEETA DOYLE on 11/03/18 1150 Patient Home Medication List Home Medication List Reviewed: Yes Review of Systems Review of Systems Constitutional: see HPI, chills, fever Eyes: No Symptoms Reported Ears: No Symptoms Reported Nose: no symptoms reported Mouth: no symptoms reported Throat: see HPI, pain Respiratory: no symptoms reported Cardiovascular: no symptoms reported Musculoskeletal: no symptoms reported Skin: no symptoms reported Neurological: No Symptoms Reported Hematologic/Lymphatic: No Symptoms Reported Past Rcplkzb-Ymemyk-Rlmrgq Hx Patient Social History Alcohol Beverage of Choice: Beer Type Used: Cigarettes Former Smoker, Quit: Feb 19, 2018 Recent Foreign Travel: No Contact w/Someone Who Travel: No Recent Hopitalizations: No Immunizations Up To Date Tetanus Booster (TDap): Less than 5yrs PED Vaccines UTD: Yes Date of Influenza Vaccine: Mar 10, 2014 Seasonal Allergies Seasonal Allergies: No Past Medical History Surgeries: Yes (oral surgery-teeth, bmt) Appendectomy, Ear Surgery, Gallbladder Respiratory: No Currently Using CPAP: No Cardiac: No Neurological: No Reproductive Disorders: No Female Reproductive Disorders: Denies Sexually Transmitted Disease: No HIV/AIDS: No Gastrointestinal: Yes Gall Bladder Disease Musculoskeletal: No Endocrine: No Loss of Vision: Denies Hearing Impairment: Denies Cancer: No Psychosocial: No Integumentary: No Blood Disorders: No Family Medical History Alcoholism 19 MOTHER, , Age:30's - 40, Onset:Unknown (All of his life) Hypertension 19 MOTHER, Onset:30's - 40 No Family History of: AIDS Abdominal aortic aneurysm Pepito's disease Alzheimer's disease Aphasia Arthritis Asthma Cancer of mouth Cardiovascular disease Cataracts Colon cancer Completed stroke Congenital disease Congenital heart disease Coronary thrombosis Cystic fibrosis Deafness or hearing loss Dementia Diabetes mellitus Drug abuse Dysphasia Fibrocystic disease of breast Gastroenteritis Glaucoma Headache disorder Hypercholesterolemia Infertility Kidney disease Myocardial infarction Neoplasm Not obtainable due to adoption Osteoporosis Parkinson's disease Prostate cancer Psychosocial problem Respiratory disorder Seizure disorder Severe allergy Thyroid disease Tuberculosis Visual disorder Hypertension Physical Exam Vital Signs Vital Signs - First Documented 11/03/18 10:30 Temp 99.8 Pulse 105 Resp 18 B/P (MAP) 110/73 (85) Pulse Ox 98 O2 Delivery Room Air Height, Weight, BMI Height: 5'1.00" Weight: 190lbs. 6.0oz. 86.965929al; 36.0 BMI Method:Stated General Appearance: WD/WN, no apparent distress Eyes: bilateral eye normal inspection, bilateral eye PERRL, bilateral eye EOMI Ears: bilateral ear auricle normal, bilateral ear canal normal, bilateral ear TM normal Mouth/Throat: No mandibular swelling; tonsillar exudate, tonsillar swelling, trismus; No uvula swelling Neck: non-tender, full range of motion, lymphadenopathy (R), lymphadenopathy (L) Cardiovascular: regular rate, rhythm, no murmur Respiratory: no respiratory distress, no accessory muscle use Gastrointestinal: normal bowel sounds, non tender Neurologic/Psychiatric: alert, normal mood/affect, oriented x 3 Skin: normal color, warm/dry Progress/Results/Core Measures Results/Orders Lab Results Laboratory Tests Test 11/03/18 10:40 11/03/18 10:45 Range/Units Group A Streptococcus Screen NEGATIVE NEGATIVE White Blood Count 13.7 H 4.3-11.0 10^3/uL Red Blood Count 4.67 4.35-5.85 10^6/uL Hemoglobin 13.8 11.5-16.0 G/DL Hematocrit 42 35-52 % Mean Corpuscular Volume 89 80-99 FL Mean Corpuscular Hemoglobin 30 25-34 PG Mean Corpuscular Hemoglobin Concent 33 32-36 G/DL Red Cell Distribution Width 13.7 10.0-14.5 % Platelet Count 311 130-400 10^3/uL Mean Platelet Volume 10.2 7.4-10.4 FL Neutrophils (%) (Auto) 81 H 42-75 % Lymphocytes (%) (Auto) 9 L 12-44 % Monocytes (%) (Auto) 9 0-12 % Eosinophils (%) (Auto) 0 0-10 % Basophils (%) (Auto) 0 0-10 % Neutrophils # (Auto) 11.1 H 1.8-7.8 X 10^3 Lymphocytes # (Auto) 1.3 1.0-4.0 X 10^3 Monocytes # (Auto) 1.3 H 0.0-1.0 X 10^3 Eosinophils # (Auto) 0.0 0.0-0.3 10^3/uL Basophils # (Auto) 0.0 0.0-0.1 10^3/uL Sodium Level 134 L 135-145 MMOL/L Potassium Level 3.5 L 3.6-5.0 MMOL/L Chloride Level 103 98-107 MMOL/L Carbon Dioxide Level 21 21-32 MMOL/L Anion Gap 10 5-14 MMOL/L Blood Urea Nitrogen 6 L 7-18 MG/DL Creatinine 0.78 0.60-1.30 MG/DL Estimat Glomerular Filtration Rate > 60 BUN/Creatinine Ratio 8 Glucose Level 103 70-105 MG/DL Calcium Level 9.5 8.5-10.1 MG/DL Corrected Calcium 9.3 8.5-10.1 MG/DL Total Bilirubin 0.5 0.1-1.0 MG/DL Aspartate Amino Transf (AST/SGOT) 14 5-34 U/L Alanine Aminotransferase (ALT/SGPT) 16 0-55 U/L Alkaline Phosphatase 99 40-136 U/L Total Protein 7.2 6.4-8.2 GM/DL Albumin 4.3 3.2-4.5 GM/DL Serum Test, Qualitative NEGATIVE NEGATIVE Monoscreen NEGATIVE NEGATIVE My Orders Orders - MEETA DOYLE APRN Hcg,Qualitative Serum (11/03/18 10:45) Cbc With Automated Diff (11/03/18 10:45) Comprehensive Metabolic Panel (11/03/18 10:45) Monotest (11/03/18 10:45) Ed Iv/Invasive Line Start (11/03/18 10:45) Ct Neck (Soft Tissue) W (11/03/18 10:45) Lactated Ringers (Lr 1000 Ml Iv Solution (11/03/18 10:45) Ketorolac Injection (Toradol Injection) (11/03/18 10:45) Fentanyl Injection (Sublimaze Injection (11/03/18 10:45) Rapid Strep A Screen (11/03/18 11:10) Iohexol Injection (Omnipaque 350 Mg/Ml 1 (11/03/18 11:30) Received Contrast (Hold Metformin- Contr (11/03/18 11:30) Sodium Chloride Flush (Catheter Flush Sy (11/03/18 11:30) Ns (Ivpb) (Sodium Chloride 0.9% Ivpb Bag (11/03/18 11:30) Dexamethasone Injection (Decadron Inject (11/03/18 11:45) Clindamycin 900 Mg/50 Ml Ivpb (Cleocin P (11/03/18 11:45) Medications Given in ED Current Medications Medications Dose Ordered Sig/Ankush Route Start Time Stop Time Status Last Admin Dose Admin Clindamycin Phosphate/Dextrose 50 ml @ 100 mls/hr ONCE ONCE IV 11/03/18 11:45 11/03/18 12:14 DC 11/03/18 11:53 100 MLS/HR Dexamethasone Sodium Phosphate 10 mg ONCE ONCE IV 11/03/18 11:45 11/03/18 11:46 DC 11/03/18 11:51 10 MG Fentanyl Citrate 50 mcg ONCE ONCE IVP 11/03/18 10:45 11/03/18 10:47 DC 11/03/18 10:52 50 MCG Iohexol 100 ml ONCE ONCE IV 11/03/18 11:30 11/03/18 11:31 DC 11/03/18 11:27 80 ML Ketorolac Tromethamine 15 mg ONCE ONCE IVP 11/03/18 10:45 11/03/18 10:47 DC 11/03/18 10:53 15 MG Sodium Chloride 10 ml NEEDED PRN IV 11/03/18 11:30 11/03/18 12:37 DC 11/03/18 11:27 10 ML Sodium Chloride 100 ml ONCE ONCE IV 11/03/18 11:30 11/03/18 11:31 DC 11/03/18 11:27 80 ML Vital Signs/I&O 11/03/18 11/03/18 11/03/18 10:30 10:53 12:37 Temp 99.8 99.8 99.8 Pulse 105 85 Resp 18 18 B/P (MAP) 110/73 (85) 97/66 (76) Pulse Ox 98 97 O2 Delivery Room Air Room Air Diagnostic Imaging Diagonstic Imaging: CT Comments NAME: MEME HAZEL [facility] REC#: [id number] PT STATUS: REG ER : 1995 PHYSICIAN: MEETA DOYLE APRN ADMIT DATE: 11/03/18/ER Draft Date of Exam:11/03/18 CT NECK (SOFT TISSUE) W PROCEDURE: CT neck soft tissue with contrast. TECHNIQUE: Multiple contiguous axial images were obtained through the neck after the administration of contrast. Auto Exposure Controls were utilized during the CT exam to meet ALARA standards for radiation dose reduction. INDICATION: Throat pain and swelling for 3 days, radiating to the right side of the neck and head. COMPARISON: None. DISCUSSION: The tonsillar tissue is heterogenous and enhancing, right greater than left. This likely represents acute tonsillitis. There may be some phlegmon formation on the right with the largest pocket measuring 1.5 x 0.4 cm. There is no dominant abscess identified. The thyroid gland is unremarkable. The bilateral parotid and submandibular glands appear within normal limits. The visualized intracranial contents are unremarkable. The paranasal sinuses and mastoid air cells are well-aerated. The bilateral carotid bifurcations are patent. Vertebral arteries are codominant. No significant degenerative disease. No acute osseous abnormality. Enlarged lymph nodes are present within the neck measuring up to 2.5 x 2.1 x 1.5 cm on the left, level II. Adenopathy is likely reactive. IMPRESSION: 1. Heterogenous enhancement of the tonsillar tissue, right greater than left, with suspected early phlegmon formation is consistent with acute tonsillitis. Additional reactive appearing adenopathy is present bilaterally. Dictated on workstation # [id number] Dict: 11/03/18 1134 Trans: 11/03/18 1141 [id number] Interpreted by: JOHN DUGGAN MD Electronically signed by: Departure Impression Primary Impression: Tonsillitis with exudate Disposition: HOME, SELF-CARE Condition: Stable Departure-Patient Inst. Decision time for Depature: 11:45 Referrals: [facility] (PCP/Family) Primary Care Physician Patient Instructions: Sore Throat in Adults Add. Discharge Instructions: 1. Medication as directed 2. Follow-up with doctor next week 3. Return to ER for any worsening Scripts Ondansetron (Ondansetron Odt) 8 Mg Tab.rapdis 8 MG PO Q6H PRN for NAUSEA/VOMITING, #10 TAB Prov: MEETA DOYLE APRN 11/03/18 Amoxicillin/Potassium Clav (Augmentin 875-125 Tablet) 1 Each Tablet 1 EACH PO BID, #20 TAB 0 Refills Prov: MEETA DOYLE APRN 11/03/18 Prednisone (Prednisone) 10 Mg Tab.ds.pk 10 MG PO DAILY, #21 EA Take 6 tabs(60mg)daily,decrease by 1 tab(10MG)daily. Prov: MEETA DOYLE APRN 11/03/18 MEETA DOYLE APRN Nov 03, 2018 10:51
[2018-11-03 10:56] LABS: BASOPHILS % (AUTO) 0 % (0-10); EOSINOPHILS % (AUTO) 0 % (0-10); HEMATOCRIT 42 % (35-52); HEMOGLOBIN 13.8 G/DL (11.5-16.0); LYMPHOCYTES # (AUTO) 1.3 X 10^3 (1.0-4.0); LYMPHOCYTES % (AUTO) 9 % (12-44); MEAN CORPUSCULAR HEMOGLOBIN 30 PG (25-34); MEAN CORPUSCULAR HGB CONC 33 G/DL (32-36); MEAN CORPUSCULAR VOLUME 89 FL (80-99); MEAN PLATELET VOLUME 10.2 FL (7.4-10.4); MONOCYTES # (AUTO) 1.3 X 10^3 (0.0-1.0); MONOCYTES % (AUTO) 9 % (0-12); NEUTROPHILS # (AUTO) 11.1 X 10^3 (1.8-7.8); NEUTROPHILS % (AUTO) 81 % (42-75); PLATELET COUNT 311 10^3/uL (130-400); RED CELL DISTRIBUTION WIDTH 13.7 % (10.0-14.5); WHITE BLOOD COUNT 13.7 10^3/uL (4.3-11.0)
[2018-11-03 11:14] LABS: ALANINE AMINOTRANSFERASE 16 U/L (0-55); ALBUMIN 4.3 GM/DL (3.2-4.5); ALKALINE PHOSPHATASE 99 U/L (40-136); BILIRUBIN,TOTAL 0.5 MG/DL (0.1-1.0); BUN/CREATININE RATIO 8; CALCIUM 9.5 MG/DL (8.5-10.1); CARBON DIOXIDE 21 MMOL/L (21-32); CHLORIDE 103 MMOL/L (98-107); CREATININE SERUM 0.78 MG/DL (0.60-1.30); GFR ESTIMATED > 60; GLUCOSE 103 MG/DL (70-105); POTASSIUM 3.5 MMOL/L (3.6-5.0); SODIUM 134 MMOL/L (135-145); TOTAL PROTEIN 7.2 GM/DL (6.4-8.2)
[2018-11-03] MEDS ORDERED: IOHEXOL 350 MG/ML 100 ML (OMNIPAQUE 350) VIAL IV ONE (11:30)
[2018-11-03] MEDS ORDERED: HOLD METFORMIN - RECEIVED CONTRAST 20 ML VIAL IV SCH (11:30)
[2018-11-03] MEDS ORDERED: NS 100 ML (IVPB) BAG IV ONE (11:30)
[2018-11-03] MEDS ORDERED: CATHETER FLUSH 10 ML SYR IV PRN (11:30)
--- NOTE | 2018-11-03 11:41 | Diagnostic Imaging Report ---
PROCEDURE: CT neck soft tissue with contrast. TECHNIQUE: Multiple contiguous axial images were obtained through the neck after the administration of contrast. Auto Exposure Controls were utilized during the CT exam to meet ALARA standards for radiation dose reduction. INDICATION: Throat pain and swelling for 3 days, radiating to the right side of the neck and head. COMPARISON: None. DISCUSSION: The tonsillar tissue is heterogenous and enhancing, right greater than left. This likely represents acute tonsillitis. There may be some phlegmon formation on the right with the largest pocket measuring 1.5 x 0.4 cm. There is no dominant abscess identified. The thyroid gland is unremarkable. The bilateral parotid and submandibular glands appear within normal limits. The visualized intracranial contents are unremarkable. The paranasal sinuses and mastoid air cells are well-aerated. The bilateral carotid bifurcations are patent. Vertebral arteries are codominant. No significant degenerative disease. No acute osseous abnormality. Enlarged lymph nodes are present within the neck measuring up to 2.5 x 2.1 x 1.5 cm on the left, level II. Adenopathy is likely reactive. IMPRESSION: 1. Heterogenous enhancement of the tonsillar tissue, right greater than left, with suspected early phlegmon formation is consistent with acute tonsillitis. Additional reactive appearing adenopathy is present bilaterally. Dictated by: Dictated on workstation # [id number]
[2018-11-03] MEDS ORDERED: CLINDAMYCIN 900 MG/50 ML IVPB 50 ML IV ONE (11:45)
[2018-11-03] MEDS ORDERED: DEXAMETHASONE 10 MG/ML (DECADRON) 1 ML VIAL IV ONE (11:45)
[2018-11-03] MEDS ORDERED: PRED10TA22 PO (11:50)
[2018-11-03] MEDS ORDERED: ONDA8TAB13 PO (11:50)
[2018-11-03] MEDS ORDERED: AMOX-358 PO (11:50)
[2018-11-03 12:37] VITALS: BP 97/66
== END 2018-11-03 12:36 | disposition home or self-care (01) ==
LOC: EDUNIT# 10:12 → ER 10:13
DX: J03.90 Acute tonsillitis, unspecified (principal); Z87.891 Personal history of nicotine dependence; Z90.49 Acquired absence of other specified parts of digestive tract; Z82.49 Family history of ischemic heart disease and other diseases of the circulatory system
CPT/HCPCS: 36415; 70491; 80053; 84703; 85025; 86308; 87430; 96361; 96365; 96375

== ENCOUNTER 2019-07-17 11:51 | Emergency (ER) | payer MEDICAID ==
[~2019-07-17] VITALS: Ht 155 cm; Wt 87.3 kg
[~2019-07-17 11:51] MED LIST changes: +AMOX-358 PO; +ONDA8TAB13 PO; +PRED10TA22 PO
--- NOTE | 2019-07-17 12:19 | ED General ---
General Chief Complaint: Cough/Cold/Flu Symptoms Stated Complaint: COUGH,SOA,HEADACHE Nursing Triage Note: Pt amb to triage with c/o cough, congestion, ear ache, sore throat, SOA, et intermittent fever. Pt reports onset of symptoms to be 07/14/19. Pt currently afebrile during triage with oral temp of 36.8. A&OX4. Nursing Sepsis Screen: No Definite Risk Source of Information: Patient Exam Limitations: No Limitations History of Present Illness Date Seen by Provider: Jul 17, 2019 Time Seen by Provider: 12:17 Initial Comments To ER with productive cough, nasal congestion earaches sore throat short of breath and fever to a maximum of 99.83 days. No travel or known exposure to COVID19 pts. Timing/Duration: 3-4 Days Severity: Moderate Associated Systoms: Cough Allergies and Home Medications Allergies Coded Allergies: No Known Drug Allergies (Unverified , 03/09/18) Home Medications Albuterol Sulfate 1 Puff Puff, 2 PUFF IH Q4H PRN for SHORTNESS OF BREATH, (Reported) 1 PUFF = 90 MCG Amoxicillin/Potassium Clav 1 Each Tablet, 1 EACH PO BID Prescribed by: MEETA DOYLE on 11/03/18 1150 Doxycycline Hyclate 100 Mg Tablet.dr, 100 MG PO BID Prescribed by: CORINNA HUANG on 03/10/18 1038 Ondansetron 8 Mg Tab.rapdis, 8 MG PO Q6H PRN for NAUSEA/VOMITING Prescribed by: MEETA DOYLE on 11/03/18 1150 Prednisone 10 Mg Tab, 0 PO UD Take 6 tabs(60mg)daily, decrease by 1 tab(10mg) every other day. Prescribed by: CORINNA HUANG on 03/10/18 1038 Prednisone 10 Mg Tab.ds.pk, 10 MG PO DAILY Take 6 tabs(60mg)daily,decrease by 1 tab(10MG)daily. Prescribed by: MEETA DOYLE on 11/03/18 1150 Patient Home Medication List Home Medication List Reviewed: Yes Review of Systems Review of Systems Constitutional: see HPI EENTM: see HPI, nose congestion, throat pain Respiratory: see HPI, cough Cardiovascular: no symptoms reported Genitourinary: no symptoms reported Musculoskeletal: no symptoms reported Skin: no symptoms reported Psychiatric/Neurological: No Symptoms Reported Hematologic/Lymphatic: No Symptoms Reported Past Hqektoa-Uiozaz-Sklsqd Hx Patient Social History Alcohol Use: Rarely Uses Number of Drinks Today: 0 Alcohol Beverage of Choice: Beer Recreational Drug Use: No Smoking Status: Current Everyday Smoker Type Used: Cigarettes Former Smoker, Quit: Feb 19, 2018 2nd Hand Smoke Exposure: Yes Recent Foreign Travel: No Contact w/Someone Who Travel: No Recent Infectious Disease Expo: No Recent Hopitalizations: No Immunizations Up To Date Tetanus Booster (TDap): Less than 5yrs PED Vaccines UTD: Yes Date of Influenza Vaccine: Mar 10, 2014 Seasonal Allergies Seasonal Allergies: No Past Medical History Surgeries: Yes (oral surgery-teeth, bmt) Appendectomy, Ear Surgery, Gallbladder Respiratory: No Currently Using CPAP: No Cardiac: No Neurological: No Reproductive Disorders: No Female Reproductive Disorders: Denies Sexually Transmitted Disease: No HIV/AIDS: No Gastrointestinal: Yes Gall Bladder Disease Musculoskeletal: No Endocrine: No Loss of Vision: Denies Hearing Impairment: Denies Cancer: No Psychosocial: No Integumentary: No Blood Disorders: No Family Medical History Alcoholism 19 MOTHER, , Age:30's - 40, Onset:Unknown (All of his life) Hypertension 19 MOTHER, Onset:30's - 40 No Family History of: AIDS Abdominal aortic aneurysm Josephine's disease Alzheimer's disease Aphasia Arthritis Asthma Cancer of mouth Cardiovascular disease Cataracts Colon cancer Completed stroke Congenital disease Congenital heart disease Coronary thrombosis Cystic fibrosis Deafness or hearing loss Dementia Diabetes mellitus Drug abuse Dysphasia Fibrocystic disease of breast Gastroenteritis Glaucoma Headache disorder Hypercholesterolemia Infertility Kidney disease Myocardial infarction Neoplasm Not obtainable due to adoption Osteoporosis Parkinson's disease Prostate cancer Psychosocial problem Respiratory disorder Seizure disorder Severe allergy Thyroid disease Tuberculosis Visual disorder Hypertension Physical Exam Vital Signs Vital Signs - First Documented Capillary Refill : Less Than 3 Seconds Height, Weight, BMI Height: 5'0" Weight: 192lbs. 6.0oz. 87.489099eq; 36.00 BMI Method:Stated General Appearance: No Apparent Distress, WD/WN Eyes: Bilateral Eye Normal Inspection, Bilateral Eye PERRL, Bilateral Eye EOMI HEENT: PERRL/EOMI, TMs Normal Neck: Full Range of Motion, Normal Inspection Respiratory: No Accessory Muscle Use, No Respiratory Distress Gastrointestinal: Non Tender, Soft Extremity: Normal Capillary Refill, Normal Inspection Neurologic/Psychiatric: Alert, Oriented x3 Skin: Normal Color, Warm/Dry Progress/Results/Core Measures Suspected Sepsis Recent Fever Within 48 Hours: Yes Infection Criteria Present: Suspected New Infection New/Unexplained Altered Menta: No Sepsis Screen: No Definite Risk SIRS Temperature: Pulse: 89 Respiratory Rate: 18 Blood Pressure 119 /77 Mean: 91 Results/Orders Lab Results Laboratory Tests Test 07/17/19 12:23 Range/Units Group A Streptococcus Screen NEGATIVE NEGATIVE Micro Results Microbiology 07/17/19 Influenza Types A,B Antigen ([facility]ANNA) - Final, Complete My Orders Orders - MEETA DOYLE APRN Influenza A And B Antigens (07/17/19 12:14) Chest Pa/Lat (2 View) (07/17/19 12:19) Rapid Strep A Screen (07/17/19 12:21) Vital Signs/I&O 07/17/19 07/17/19 12:04 12:04 Temp 36.8 Pulse 89 Resp 18 B/P (MAP) 119/77 (91) Pulse Ox 98 O2 Delivery Room Air Room Air Capillary Refill : Less Than 3 Seconds Blood Pressure Mean: 91 Departure Communication (Admissions) Her lungs are clear, she is not tachycardic or hypoxic or in any sort of respiratory distress Impression Primary Impression: Bronchitis Disposition: 01 HOME, SELF-CARE Condition: Stable Departure-Patient Inst. Decision time for Depature: 12:58 Referrals: [facility] (PCP) Primary Care Physician THELMA BUTT (Family) Primary Care Physician Patient Instructions: Acute Bronchitis Add. Discharge Instructions: 1. Medication as directed 2. Return to ER for any concerns 3. All discharge instructions reviewed with patient and/or family. Voiced understanding. Scripts Azithromycin (Azithromycin) 250 Mg Tablet 250 MG PO UD, #6 TAB TAKE 2 TABLETS ON DAY ONE THEN TAKE 1 TABLET DAILY FOR FOUR MORE DAYS Prov: MEETA DOYLE APRN 07/17/19 Work/School Note: Work Release Form Date Seen in the Emergency Department: Jul 17, 2019 Return to Work: Jul 20, 2019 MEETA DOYLE APRN Jul 17, 2019 12:19
[2019-07-17] MEDS ORDERED: D-ME118S33 PO (13:00)
[2019-07-17] MEDS ORDERED: AZIT250T12 PO (13:00)
--- NOTE | 2019-07-17 13:07 | Diagnostic Imaging Report ---
INDICATION: Cough and dyspnea with fever. TECHNIQUE: PA and lateral views of the chest were obtained. COMPARISON: 03/09/2018. FINDINGS: The heart size and pulmonary vascularity are within normal limits. The lungs are clear bilaterally. IMPRESSION: Unremarkable chest. Dictated by: Dictated on workstation # [id number]
[2019-07-17 13:15] VITALS: BP 111/77
== END 2019-07-17 13:15 | disposition home or self-care (01) ==
LOC: EDUNIT# 11:51 → ER 11:53
DX: J40 Bronchitis, not specified as acute or chronic (principal); Z79.52 Long term (current) use of systemic steroids
CPT/HCPCS: 71046; 87430; 87804